=== PATIENT | female | born 1975 | race Caucasian/White ===

== ENCOUNTER 2019-01-10 06:45 | Day surgery (SDC) | payer OTHER, MEDICARE ==
[~2019-01-10] VITALS: Ht 180.3 cm; Wt 74.8 kg
[~2019-01-10 06:45] MED LIST: ADVAIR 250-501 EACH INH; ALBUTEROL2.5 MG/3 M INH; AMOXICILLIN500 M1 PO; CELEBREX200 MG PO; CEPHALEXIN500 MG PO; CYCLOBENZAPRINE5 MG PO; DICLOFENAC SODI75 MG PO; DICYCLOMINE HCL10 MG PO; DOXYCYCLINE HY100 MG PO; GABAPENTIN100 MG PO; GABAPENTIN300 MG PO; GUAIFEN-CODEINE10 ML PO; HYDROCODON-ACE1 EA11 PO; IBUPROFEN600 MG PO; IMITREX100 MG PO; IMITREX50 MG PO; IPRAT-ALBUT 0.5-3 ML INH; LEVAQUIN500 MG PO; METHYLPREDNISOLO4 M1 PO; MOTRIN IB200 MG PO; NAPROXEN500 MG PO; ONDANSETRON HCL4 MG PO; PERCOCET 5-3251 EACH PO; PERCOCET 7.5-31 EACH PO; PHENAZOPYRIDIN200 MG PO; PREDNISONE10 MG PO; PREDNISONE20 MG PO; PROMETHAZINE12.5 M1 PO; PROVENTIL HFA6.7 GM INH; PULMICORT FLE180 MCG INH; TOPAMAX100 MG PO; VENTOLIN HFA18 GM INH; ZITHROMAX250 MG PO
[2019-01-10] MEDS ORDERED: CYCLOBENZAPRINE5 MG PO (06:57)
--- NOTE | 2019-01-10 09:08 | NUR ---
01/10/19 0908 Carmen Turner 0854- PT ARRIVES TO PACU NONAROUSABLE TO NOXIOUS STIMULI. RESP EVEN AND UNLABORED. OXYGEN SAT HIGH 90'S TO 100% ON 4L VIA NC.
--- NOTE | 2019-01-12 10:32 | OR ---
[facility] [address] [place], [place] [address] Signed DATE OF OPERATION: 01/10/2019 SURGEON: Gordy Mosley MD PREOPERATIVE DIAGNOSES: 1. Weight loss. 2. Nausea, vomiting, anorexia with generalized abdominal pain. 3. Diarrhea. 4. Half brother with Crohn disease. 5. Paternal aunt with colon cancer. 6. History of remote cholecystectomy. POSTOPERATIVE DIAGNOSES: 1. Unremarkable upper endoscopy. 2. Unremarkable colonoscopy. PROCEDURES: 1. EGD with CLOtest and biopsies of the duodenum, pyloric bulb and antrum. 2. Colonoscopy with random cold biopsies. ESTIMATED BLOOD LOSS: None. INDICATIONS: Joanne is a 43-year-old female asked to see me for both upper and lower endoscopy. She has lost 83 pounds over the last year. This was all unintentional. She has had nausea, vomiting, anorexia, and rapid transit of her food. She has generalized abdominal pain. She is talking about diarrhea. Her half brother has Crohn disease. She has a daughter with irritable bowel syndrome. Stool studies were all negative. Percocet helps slow the diarrhea. However, she is a recovering drug addict and is asked not to take any narcotics whatsoever. She is having mucus in the stool and bowel movements up to six times a day. She has a paternal aunt with colon cancer. She has been off her methamphetamines now for about 3 years. In the office, I gave her a pamphlet on both upper and lower endoscopy. We reviewed the nature of the two tests along with the risks including, but not limited to gas, bloating, crampy abdominal pain, bleeding, perforation, requiring surgery, and missed diagnosis. We also discussed the need for IV conscious sedation. Because of her previous drug abuse including opiates, she wants to avoid that at all cost. Consequently, we asked an anesthesia provider to help us with increased monitoring and sedation with propofol. In fact, Joanne does use a little marijuana and it did take quite a bit of propofol to sedate her. She had expressed Electronically Signed By: GORDY MOSLEY MD 01/12/19 1032 PATIENT NAME: JOANNE REIS OPERATIVE REPORT DATE OF : 71 REPORT #: [id number] PHYSICIAN: GORDY MOSLEY MD PCP: ROXANNA WISEMAN PAC REPORT IS CONFIDENTIAL AND NOT TO BE RELEASED WITHOUT AUTHORIZATION [facility] [address] [place], [place] [address] Signed understanding and wished to proceed. PROCEDURE NOTE: Joanne was taken into our endoscopy suite and placed in a supine semi-recumbent position. The posterior oropharynx was anesthetized with lidocaine spray. A bite block was utilized for the case. She was sedated by our nurse security escort with propofol. The adult gastroscope was introduced and advanced out into the third portion of the duodenum under direct visualization of the camera without difficulty. The duodenum, pyloric channel and the entire stomach were unremarkable. We took biopsies of the duodenum, pyloric channel and antrum because of the history of diarrhea. We also took a biopsy of the antrum for CLOtest. Upon retroflexion of the scope, there was no additional pathology noted up around the GE junction. The scope was withdrawn up to the area of GE junction, which was compliant without stricture. There was no gastric or esophageal varices. No Roth's mucosa. No distal esophagitis. The middle and upper esophagus were unremarkable. After this, the gas was suctioned out and the gastroscope removed. Joanne tolerated the procedure quite well. Joanne was rotated into the left lateral decubitus position. She was maintained on IV sedation with the propofol. A digital rectal exam was unremarkable. The adult colonoscope was introduced and advanced all around into the cecum without difficulty. Her prep was quite good. We could easily see the appendiceal orifice and the ileocecal valve. Pictures were taken for photodocumentation. We could not pass the scope into the terminal ileum. We took several random biopsies throughout the colon for pathologic review due to the history of diarrhea. There were no polyps. No diverticulosis. No inflammatory changes. The rectum was unremarkable. Upon retroflexion of the scope, there was no additional pathology noted above the anal canal. After this, the gas was suctioned out and the colonoscope removed. Joanne tolerated procedure quite well. RECOMMENDATIONS: I will see Joanne back in my office in 7 to 14 days to review her results. Gordy Mosley MD ALB/MODL /[id number] Electronically Signed By: GORDY MOSLEY MD 01/12/19 1032 PATIENT NAME: JOANNE REIS OPERATIVE REPORT DATE OF : 71 REPORT #: [id number] PHYSICIAN: GORDY MOSLEY MD PCP: ROXANNA WISEMAN PAC REPORT IS CONFIDENTIAL AND NOT TO BE RELEASED WITHOUT AUTHORIZATION [facility] [address] [place], [place] [address] Signed cc: DIANA Sadler DO Andrew L Bower, MD Copies: ROXANNA WISEMAN,GORDY ALONZO MD ~ Electronically Signed By: GORDY MOSLEY MD 01/12/19 1032 PATIENT NAME: FREDDY BOWERJOANNE JESSICA OPERATIVE REPORT DATE OF : 71 REPORT #: [id number] PHYSICIAN: GORDY MOSLEY MD PCP: ROXANNA WISEMAN REPORT IS CONFIDENTIAL AND NOT TO BE RELEASED WITHOUT AUTHORIZATION
--- NOTE | 2019-01-13 13:01 | PATH ---
[facility] [address] [place], [place] [address] Signed SPECIMEN(S): A DUODENAL BIOPSY SPECIMEN(S): B DUODENAL BULB BIOPSY SPECIMEN(S): C ANTRUM/PYLORUS BIOPSY SPECIMEN(S): D RANDOM COLON BIOPSY SPECIMEN SOURCE: A. DUODENAL BIOPSY B. DUODENAL BULB BIOPSY C. ANTRUM/PYLORUS BIOPSY D. RANDOM COLON BIOPSY CLINICAL HISTORY: Diarrhea, nausea, vomiting, anorexia. MICROSCOPIC DESCRIPTION: A, B. Histologic sections of all submitted blocks are examined by light microscopy. These findings, together with the gross examination, support the pathologic diagnosis. C. Sections reveal biopsies of gastric mucosa. The epithelial surface is intact and has retained mucus secreting ability. The lamina propria is minimally expanded by a population of plasma cells, lymphocytes and infrequent eosinophils. No acute inflammatory cells, goblet cells, Paneth cells or bacteria morphologically consistent with Helicobacter are seen on HE stained sections. There is no evidence of malignancy or atypia. D. Sections reveal multiple biopsies of colonic mucosa. The epithelial surface is intact but has slightly decreased mucus secreting ability. The basement membrane is not thickened. The glands are simple and tubular and reach all of the way to the muscularis mucosae. The lamina propria is not expanded and contains small numbers of plasma cells, lymphocytes and infrequent eosinophils. No acute inflammatory cells, excess intraepithelial lymphocytes, crypt abscesses, areas of fibrosis, granulomas or pseudomembranes are seen. There is no evidence of malignancy or atypia. LJA:cml FINAL PATHOLOGIC DIAGNOSIS: A. Mucosa, duodenum, biopsy: - Duodenal mucosa with normal villous architecture, no microscopic pathologic diagnosis. B. Mucosa, duodenal bulb, biopsy: PATIENT NAME: SERGIO REIS PATHOLOGY DATE OF : 71 REPORT #: [id number] PHYSICIAN: LUIS LAIRD PCP: ROXANNA WISEMAN PAC REPORT IS CONFIDENTIAL AND NOT TO BE RELEASED WITHOUT AUTHORIZATION [facility] [address] [place], [place] [address] Signed - Duodenal mucosa with normal villiform architecture, no microscopic pathologic diagnosis. C. Mucosa, antrum, biopsy: - Minimal inactive chronic gastritis. - Negative for the presence of bacteria morphologically consistent with Helicobacter on HE stained sections (see comment). D. Mucosa, colon, random biopsies: - No microscopic pathologic diagnosis. COMMENT: C -- The patient had a BRIDGER test performed, reported as negative in the [facility] database. LJA:cml:C2NR GROSS DESCRIPTION: Four specimens are received in four containers, labeled "DC." A. The specimen, labeled "DC, duodenal biopsy," is received in formalin and consists of a single 0.3 cm tang-brown fragment. Specimen is entirely submitted in cassette (A1). B. The specimen, labeled "DC, duodenal bulb biopsy," is received in formalin and consists of a single 0.2 cm tang-brown fragment. Specimen is entirely submitted in cassette (B1). C. The specimen, labeled "DC, antrum biopsy," is received in formalin and consists of a single 0.3 cm tang fragment. Specimen is entirely submitted in cassette (C1). D. The specimen, labeled "DC, random colon biopsy," is received in formalin and consists of four, 0.2-0.3 cm tang fragments. Specimen is entirely submitted in cassette (D1). AM (under the direct supervision of a pathologist) The Gross Description was prepared using a voice recognition system. The report was reviewed for accuracy; however, sound-alike word errors, addition and/or deletions may occur. If there is any question about this report, please contact Client Services. PERFORMING LABORATORY: The technical component was performed by [facility] [address] (Life Management Teacher: Lidia Cornelius MD; CLIA# [id number]). Professional interpretation was performed by [facility], [address] [address] (Life Management Teacher: Vlad Garcia MD; CLIA# [id number]). PATIENT NAME: SERGIO REIS PATHOLOGY DATE OF : 71 REPORT #: [id number] PHYSICIAN: LUIS LAIRD PCP: ROXANNA WISEMAN PAC REPORT IS CONFIDENTIAL AND NOT TO BE RELEASED WITHOUT AUTHORIZATION [facility] [address] [place], [place] [address] Signed Diagnostician: Vlad Garcia MD Pathologist Electronically Signed 01/13/2019 Copies: ~ PATIENT NAME: SERGIO REIS PATHOLOGY DATE OF : 71 REPORT #: [id number] PHYSICIAN: LUIS PATHOLOGY PCP: ROXANNA WISEMAN PAC REPORT IS CONFIDENTIAL AND NOT TO BE RELEASED WITHOUT AUTHORIZATION
== END 2019-01-10 09:30 | disposition home or self-care (01) ==
LOC: DS 06:45
PROVIDERS: Colon & Rectal Surgery
PROC: 0DBE8ZX Excision of Large Intestine, Via Natural or Artificial Opening Endoscopic, Diagnostic (ICD-10-PCS; 2019-01-10)
PROC: 0DB98ZX Excision of Duodenum, Via Natural or Artificial Opening Endoscopic, Diagnostic (ICD-10-PCS; principal; 2019-01-10 07:45)
PROC: 0DB78ZX Excision of Stomach, Pylorus, Via Natural or Artificial Opening Endoscopic, Diagnostic (ICD-10-PCS; 2019-01-10 07:45)
DX: R19.7 Diarrhea, unspecified (principal); K29.50 Unspecified chronic gastritis without bleeding; R63.0 Anorexia; M19.90 Unspecified osteoarthritis, unspecified site; F41.0 Panic disorder [episodic paroxysmal anxiety]; F32.9 Major depressive disorder, single episode, unspecified; F12.90 Cannabis use, unspecified, uncomplicated; J18.9 Pneumonia, unspecified organism; G43.909 Migraine, unspecified, not intractable, without status migrainosus; J44.9 Chronic obstructive pulmonary disease, unspecified; F41.9 Anxiety disorder, unspecified; R63.4 Abnormal weight loss; F17.210 Nicotine dependence, cigarettes, uncomplicated; Z80.0 Family history of malignant neoplasm of digestive organs; Z90.49 Acquired absence of other specified parts of digestive tract; Z83.79 Family history of other diseases of the digestive system; Z88.6 Allergy status to analgesic agent; Z88.5 Allergy status to narcotic agent; Z88.8 Allergy status to other drugs, medicaments and biological substances; Z79.51 Long term (current) use of inhaled steroids; Z79.899 Other long term (current) drug therapy
CPT/HCPCS: 86677; J2250; J2704; J3010; J7120

== ENCOUNTER 2019-01-10 15:35 | Emergency (ER) | payer OTHER, MEDICARE ==
[~2019-01-10] VITALS: Ht 180.3 cm; Wt 74.8 kg
--- OUTSIDE RECORDS SUMMARY | 2019-01-10 15:38 | XMS ---
PreManage Notification: SERGIO REIS Security Advanced Practice Provider Events No recent Security Events currently on file CRITERIA MET - [facility] - Has Care Guidelines - PDMP CARE PROVIDERS ROXANNA WISEMAN Physician Composition Professor 03/27/2018-Current PHONE: Unknown eLisa has no Care Guidelines for this patient. Care History Medical/Surgical 12/02/2018 [facility] - PATIENT HAS AN APT WITH DR MILTON- UROLOGIST- MOVED FROM 12/12/18 TO AT 9:00AM. 04/10/2018 [facility] - PATIENT PCP HAS DISCUSSED WITH PATIENT ABOUT A REFERRAL TO PULMONARY REHAB THE WEEK OF 04/08/18 - PATIENT AND PCP AGREED TO PULMONARY REHAB. PATIENT FOLLOWED UP WITH PCP ON 04/09/18 DUE TO RECENT ED VISITS. E.D. VISIT COUNT (12 MO.) 1 [facility]. 7 [facility]. TOTAL 8 NOTE: Visits indicate total known visits. ED/UCC VISIT TRACKING (12 MO.) 01/10/2019 15:35 [facility] [place] TYPE: Emergency COMPLAINT: - POST OP SURGERY ISSUES 11/29/2018 16:21 [facility] [place] TYPE: Emergency COMPLAINT: - KIDNEY PAIN DIAGNOSES: - Nicotine dependence, unspecified, uncomplicated - Dorsalgia, unspecified - Allergy status to other anti-infective agents status - Allergy status to analgesic agent status - Allergy status to other antibiotic agents status - Allergy status to other drugs, medicaments and biological substances status 11/27/2018 06:54 TRAY Ramírez TYPE: Emergency COMPLAINT: - DIZZY DIAGNOSES: - Nausea with vomiting, unspecified - Chronic obstructive pulmonary disease, unspecified - Allergy status to narcotic agent status - Nicotine dependence, unspecified, uncomplicated - Allergy status to other drugs, medicaments and biological substances status - Migraine, unspecified, not intractable, without status migrainosus - Dizziness and giddiness - Other intermediate (current) drug therapy - Epilepsy, unspecified, not intractable, without status epilepticus - Abnormal weight loss - Vomiting, unspecified - Diarrhea, unspecified 11/07/2018 05:[address] [facility] TYPE: Emergency COMPLAINT: - WRIST PAIN DIAGNOSES: - Allergy status to analgesic agent status - Unspecified asthma, uncomplicated - Acquired absence of both cervix and uterus - Other acute postprocedural pain - Acquired absence of other specified parts of digestive tract - Pain in left finger(s) - Allergy status to other drugs, medicaments and biological substances status - Allergy status to other antibiotic agents status - Nicotine dependence, unspecified, uncomplicated 09/28/2018 09:06 [facility] TYPE: Emergency DIAGNOSES: - Left Thumb Numbness - Contusion of left thumb without damage to nail, initial encounter - Joint Swelling - Other acute postprocedural pain 04/08/2018 01:[address] [facility] TYPE: Emergency COMPLAINT: - FLU SYMPTOMS DIAGNOSES: - Chronic obstructive pulmonary disease with (acute) exacerbation - Epilepsy, unspecified, not intractable, without status epilepticus - Allergy status to other drugs, medicaments and biological substances status - Migraine, unspecified, not intractable, without status migrainosus - Nicotine dependence, unspecified, uncomplicated - snf (current) use of systemic steroids - Acute upper respiratory infection, unspecified - Other vermin exterminator (current) drug therapy - Shortness of breath 03/26/2018 10:34 [facility] [place] [place] TYPE: Emergency COMPLAINT: - DIFFICULTY BREATHING DIAGNOSES: - Nicotine dependence, unspecified, uncomplicated - Shortness of breath - Acute bronchitis, unspecified - Other vermin exterminator (current) drug therapy - Allergy status to other drugs, medicaments and biological substances status 03/24/2018 06:51 [facility] [place] TYPE: Emergency COMPLAINT: - DIFFICULTY BREATHING DIAGNOSES: - Shortness of breath - Other vermin exterminator (current) drug therapy - Unspecified asthma with (acute) exacerbation - Epilepsy, unspecified, not intractable, without status epilepticus - Pneumonia, unspecified organism - Nicotine dependence, unspecified, uncomplicated - Allergy status to other drugs, medicaments and biological substances status - Migraine, unspecified, not intractable, without status migrainosus INPATIENT VISIT TRACKING (12 MO.) No inpatient visits to display in this time frame [email or web address]
== END 2019-01-10 17:49 | disposition home or self-care (01) ==
LOC: ED 15:35
DX: L98.9 Disorder of the skin and subcutaneous tissue, unspecified (principal); Z53.21 Procedure and treatment not carried out due to patient leaving prior to being seen by health care provider

== ENCOUNTER 2019-01-25 16:06 | Emergency (ER) | payer MEDICARE ==
[~2019-01-25] VITALS: Ht 180.3 cm; Wt 74.8 kg
--- OUTSIDE RECORDS SUMMARY | 2019-01-25 16:08 | XMS ---
PreManage Notification: SERGIO REIS Security Supervisor Cold Rolling Events 1 event(s) in the past 18 months Most recent security events: Elopement at [facility] 01/10/2019 15:35 - Other Details: PATIENT LWBS. IRIS CREATED. CRITERIA MET - 6 ED Visits in 6 Months - [facility] - Has Care Guidelines - PDMP - [facility] - 2 Visits in 30 Days CARE PROVIDERS ROXANNA WISEMAN Physician Electro Mechanic 03/27/2018-Current PHONE: Unknown Leisa has no Care Guidelines for this patient. Care History Medical/Surgical 12/02/2018 [facility] - PATIENT HAS AN APT WITH DR MILTON- UROLOGIST- MOVED FROM 12/12/18 TO AT 9:00AM. 04/10/2018 [facility] - PATIENT PCP HAS DISCUSSED WITH PATIENT ABOUT A REFERRAL TO PULMONARY REHAB THE WEEK OF 04/08/18 - PATIENT AND PCP AGREED TO PULMONARY REHAB. PATIENT FOLLOWED UP WITH PCP ON 04/09/18 DUE TO RECENT ED VISITS. E.D. VISIT COUNT (12 MO.) 1 [facility] 1 PUNEET Abrams 8 TRAY Rocha TOTAL 10 NOTE: Visits indicate total known visits. ED/UCC VISIT TRACKING (12 MO.) 01/25/2019 16:07 TRAY Ramírez TYPE: Emergency COMPLAINT: - FLANK PAIN 01/15/2019 10:21 [facility] [place] TYPE: Emergency COMPLAINT: - Hand Pain 01/10/2019 15:35 [facility] [place] TYPE: Emergency COMPLAINT: - POST OP SURGERY ISSUES/LEFT W/O BEING SEEN DIAGNOSES: - Procedure and treatment not carried out due to patient leaving prior to being seen by health care provider - Disorder of the skin and subcutaneous tissue, unspecified 11/29/2018 16:21 [facility] [place] TYPE: Emergency COMPLAINT: - KIDNEY PAIN DIAGNOSES: - Nicotine dependence, unspecified, uncomplicated - Dorsalgia, unspecified - Allergy status to other anti-infective agents status - Allergy status to analgesic agent status - Allergy status to other antibiotic agents status - Allergy status to other drugs, medicaments and biological substances status 11/27/2018 06:54 [facility] [place] TYPE: Emergency COMPLAINT: - DIZZY DIAGNOSES: - Nausea with vomiting, unspecified - Chronic obstructive pulmonary disease, unspecified - Allergy status to narcotic agent status - Nicotine dependence, unspecified, uncomplicated - Allergy status to other drugs, medicaments and biological substances status - Migraine, unspecified, not intractable, without status migrainosus - Dizziness and giddiness - Other terminal gauger supervisor (current) drug therapy - Epilepsy, unspecified, not intractable, without status epilepticus - Abnormal weight loss - Vomiting, unspecified - Diarrhea, unspecified 11/07/2018 05:24 [facility] [place] TYPE: Emergency COMPLAINT: - WRIST PAIN DIAGNOSES: [...] - Nicotine dependence, unspecified, uncomplicated 09/28/2018 09:06 [facility] TYPE: Emergency DIAGNOSES: - Left Thumb Numbness - Contusion of left thumb without damage to nail, initial encounter - Joint Swelling - Other acute postprocedural pain 04/08/2018 01:05 TRAY Ramírez TYPE: Emergency COMPLAINT: - FLU SYMPTOMS DIAGNOSES: - Chronic obstructive pulmonary disease with (acute) exacerbation - Epilepsy, unspecified, not intractable, without status epilepticus - Allergy status to other drugs, medicaments and biological substances status - Migraine, unspecified, not intractable, without status migrainosus - Nicotine dependence, unspecified, uncomplicated - meterman (current) use of systemic steroids - Acute upper respiratory infection, unspecified - Other terminal gauger supervisor (current) drug therapy - Shortness of breath 03/26/2018 10:34 [facility] [place] TYPE: Emergency COMPLAINT: - DIFFICULTY BREATHING DIAGNOSES: - Nicotine dependence, unspecified, uncomplicated - Shortness of breath - Acute bronchitis, unspecified - Other terminal gauger supervisor (current) drug therapy - Allergy status to other drugs, medicaments and biological substances status 03/24/2018 06:51 [facility] [place] TYPE: Emergency COMPLAINT: - DIFFICULTY BREATHING DIAGNOSES: - Shortness of breath - Other terminal gauger supervisor (current) drug therapy - Unspecified asthma with (acute) exacerbation - Epilepsy, unspecified, not intractable, without status epilepticus - Pneumonia, unspecified organism - Nicotine dependence, unspecified, uncomplicated - Allergy status to other drugs, medicaments and biological substances status - Migraine, unspecified, not intractable, without status migrainosus INPATIENT VISIT TRACKING (12 MO.) No inpatient visits to display in this time frame [email or web address]
== END 2019-01-25 18:43 | disposition home or self-care (01) ==
LOC: ED 16:06
DX: R10.9 Unspecified abdominal pain (principal); F17.200 Nicotine dependence, unspecified, uncomplicated; Z88.0 Allergy status to penicillin; Z88.1 Allergy status to other antibiotic agents; Z88.6 Allergy status to analgesic agent; Z88.3 Allergy status to other anti-infective agents; Z88.8 Allergy status to other drugs, medicaments and biological substances
CPT/HCPCS: 74176; 80053; 81001; 84703; 85025; 96374; 96375; 99284-25; 99406; J1885; J2405

== ENCOUNTER 2019-06-01 07:57 | Emergency (ER) | payer MEDICARE ==
[~2019-06-01] VITALS: Ht 180.3 cm; Wt 74.8 kg
--- OUTSIDE RECORDS SUMMARY | 2019-06-01 08:00 | XMS ---
PreManage Notification: SERGIO REIS Security Anthropology Lecturer Events 1 event(s) in the past 18 months Most recent security events: Elopement at [facility] [place] [facility] 01/10/2019 15:35 - Other Details: PATIENT LWBS. IRIS CREATED. CRITERIA MET - [facility] - Has Care Guidelines - PDMP CARE PROVIDERS ROXANNA WISEMAN Physician Fixed Capital Clerk 03/27/2018-Current PHONE: Unknown Leisa has no Care Guidelines for this patient. Care History Medical/Surgical 12/02/2018 [facility] [place] [facility] - PATIENT HAS AN APT WITH DR MILTON- UROLOGIST- MOVED FROM 12/12/18 TO AT 9:00AM. 04/10/2018 [facility] [place] [facility] - PATIENT PCP HAS DISCUSSED WITH PATIENT ABOUT A REFERRAL TO PULMONARY REHAB THE WEEK OF 04/08/18 - PATIENT AND PCP AGREED TO PULMONARY REHAB. PATIENT FOLLOWED UP WITH PCP ON 04/09/18 DUE TO RECENT ED VISITS. E.D. VISIT COUNT (12 MO.) [address] [place] [address] [facility] T[facility] 8 NOTE: Visits indicate total known visits. ED/UCC VISIT TRACKING (12 MO.) 06/01/2019 07:58 [facility] [place] TYPE: Emergency COMPLAINT: - POST OP PROBLEM 01/25/2019 16:07 [facility] [place] TYPE: Emergency COMPLAINT: - FLANK PAIN DIAGNOSES: - Allergy status to other antibiotic agents status - Allergy status to penicillin - Nicotine dependence, unspecified, uncomplicated - Unspecified abdominal pain - Allergy status to analgesic agent status - Allergy status to oth drug/meds/biol subst status - Allergy status to other anti-infective agents status 01/15/2019 10:21 PUNE[facility] [place] TYPE: Emergency COMPLAINT: - Hand Pain 01/10/2019 15:35 TRAY Ramírez TYPE: Emergency COMPLAINT: - POST OP SURGERY ISSUES/LEFT W/O BEING SEEN DIAGNOSES: - Proc/trtmt not crd out d/t pt lv bef seen by [facility] care prov - Disorder of the skin and subcutaneous tissue, unspecified 11/29/2018 16:21 TRAY Ramírez TYPE: Emergency COMPLAINT: - KIDNEY PAIN DIAGNOSES: - Nicotine dependence, unspecified, uncomplicated - Dorsalgia, unspecified - Allergy status to other anti-infective agents status - Allergy status to analgesic agent status - Allergy status to other antibiotic agents status - Allergy status to oth drug/meds/biol subst status 11/27/2018 06:54 TRAY Ram[facility]rez TYPE: Emergency COMPLAINT: - DIZZY DIAGNOSES: - Nausea with vomiting, unspecified - Chronic obstructive pulmonary disease, unspecified - Allergy status to narcotic agent status - Nicotine dependence, unspecified, uncomplicated - Allergy status to oth drug/meds/biol subst status - Migraine, unsp, not intractable, without status migrainosus - Dizziness and giddiness - Other long term care phlebotomist (current) drug therapy - Epilepsy, unsp, not intractable, without status epilepticus - Abnormal weight loss - Vomiting, unspecified - Diarrhea, unspecified 11/07/2018 05:24 TRAY Ramírez TYPE: Emergency COMPLAINT: - WRIST PAIN DIAGNOSES: - Allergy status to analgesic agent status - Unspecified asthma, uncomplicated - Acquired absence of both cervix and uterus - Other acute postprocedural pain - Acquired absence of other specified parts of digestive tract - Pain in left finger(s) - Allergy status to oth drug/meds/biol subst status - Allergy status to other antibiotic agents status - Nicotine dependence, unspecified, uncomplicated 09/28/2018 09:06 [facility] TYPE: Emergency DIAGNOSES: - Left Thumb Numbness - Contusion of left thumb without damage to nail, init encntr - Joint Swelling - Other acute postprocedural pain INPATIENT VISIT TRACKING (12 MO.) No inpatient visits to display in this time frame [email or web address]
[2019-06-01] MEDS ORDERED: SUDOGEST60 MG PO (08:18)
== END 2019-06-01 10:33 | disposition home or self-care (01) ==
LOC: ED 07:57
DX: H66.92 Otitis media, unspecified, left ear (principal); H60.92 Unspecified otitis externa, left ear; G43.909 Migraine, unspecified, not intractable, without status migrainosus; J44.9 Chronic obstructive pulmonary disease, unspecified; F17.200 Nicotine dependence, unspecified, uncomplicated; Z88.8 Allergy status to other drugs, medicaments and biological substances; Z88.0 Allergy status to penicillin; Z79.899 Other long term (current) drug therapy
CPT/HCPCS: 80053; 81001; 85025; 96361; 96374; 99283-25; J1885; J7030

== ENCOUNTER 2019-06-24 16:47 | Emergency (ER) | payer MEDICARE ==
[~2019-06-24] VITALS: Ht 180.3 cm; Wt 78.0 kg
[~2019-06-24 16:47] MED LIST changes: +KEFLEX500 MG PO; +NORCO 5-325 TA1 EACH PO; +SUDOGEST60 MG PO; +ZENPEP DR 25,01 EAC1 PO
--- OUTSIDE RECORDS SUMMARY | 2019-06-24 16:50 | XMS ---
PreManage Notification: SERGIO REIS Security Six Pack Packer Events 1 event(s) in the past 18 months Most recent security events: Elopement at [facility] 01/10/2019 15:35 - Other Details: PATIENT LWBS. CRITERIA MET - [facility] - Has Care Guidelines - PDMP - [facility] - 2 Visits in 30 Days CARE PROVIDERS ROXANNA WISEMAN Physician Weatherization Coordinator 03/27/2018-Current PHONE: Unknown Leisa has no Care Guidelines for this patient. Care History Medical/Surgical 12/02/2018 [facility] - PATIENT HAS AN APT WITH DR MILTON- UROLOGIST- MOVED FROM 12/12/18 TO AT 9:00AM. 04/10/2018 [facility] - PATIENT PCP HAS DISCUSSED WITH PATIENT ABOUT A REFERRAL TO PULMONARY REHAB THE WEEK OF 04/08/18 - PATIENT AND PCP AGREED TO PULMONARY REHAB. PATIENT FOLLOWED UP WITH PCP ON 04/09/18 DUE TO RECENT ED VISITS. E.D. VISIT COUNT (12 MO.) 1 [facility]. TOTAL 9 NOTE: Visits indicate total known visits. ED/UCC VISIT TRACKING (12 MO.) 06/24/2019 16:48 [facility] [place] TYPE: Emergency COMPLAINT: - BLOODY NOSE/ POST OP 06/01/2019 07:58 [facility] [place] TYPE: Emergency COMPLAINT: - POST OP PROBLEM DIAGNOSES: - Migraine, unsp, not intractable, without status migrainosus - Chronic obstructive pulmonary disease, unspecified - Other intermission coordinator (current) drug therapy - Unspecified otitis externa, left ear - Nicotine dependence, unspecified, uncomplicated - Allergy status to penicillin - Allergy status to oth drug/meds/biol subst status - Otitis media, unspecified, left ear 01/25/2019 16:07 [facility] [place] TYPE: Emergency COMPLAINT: - FLANK PAIN DIAGNOSES: - Allergy status to other antibiotic agents status - Allergy status to penicillin - Nicotine dependence, unspecified, uncomplicated - Unspecified abdominal pain - Allergy status to analgesic agent status - Allergy status to oth drug/meds/biol subst status - Allergy status to other anti-infective agents status 01/15/2019 10:21 [facility] TYPE: Emergency COMPLAINT: - Hand Pain 01/10/2019 15:35 [facility] [place] TYPE: Emergency COMPLAINT: - POST OP SURGERY ISSUES/LEFT W/O BEING SEEN DIAGNOSES: - Proc/trtmt not crd out d/t pt lv bef seen by [facility] care prov - Disorder of the skin [...] oth drug/meds/biol subst status 11/27/2018 06:54 [facility] [place] TYPE: Emergency COMPLAINT: - DIZZY DIAGNOSES: - Nausea with vomiting, unspecified - Chronic obstructive pulmonary disease, unspecified - Allergy status to narcotic agent status - Nicotine dependence, unspecified, uncomplicated - Allergy status to oth drug/meds/biol subst status - Migraine, unsp, not intractable, without status migrainosus - Dizziness and giddiness - Other detention (current) drug therapy - Epilepsy, unsp, not [...] Nicotine dependence, unspecified, uncomplicated 09/28/2018 09:06 [facility] TYPE: Emergency DIAGNOSES: - Left Thumb Numbness - Contusion of left thumb without damage to nail, init encntr - Joint Swelling - Other acute postprocedural pain INPATIENT VISIT TRACKING (12 MO.) No inpatient visits to display in this time frame [email or web address]
== END 2019-06-24 18:00 | disposition home or self-care (01) ==
LOC: ED 16:47
DX: R04.0 Epistaxis (principal); G43.909 Migraine, unspecified, not intractable, without status migrainosus; G40.909 Epilepsy, unspecified, not intractable, without status epilepticus; J44.9 Chronic obstructive pulmonary disease, unspecified; F17.200 Nicotine dependence, unspecified, uncomplicated; Z88.0 Allergy status to penicillin; Z88.5 Allergy status to narcotic agent; Z88.8 Allergy status to other drugs, medicaments and biological substances; Z88.1 Allergy status to other antibiotic agents; Z79.899 Other long term (current) drug therapy
CPT/HCPCS: 99283

== ENCOUNTER 2020-05-28 10:53 | Emergency (ER) | payer OTHER ==
[~2020-05-28] VITALS: Ht 180.3 cm; Wt 73.0 kg
[~2020-05-28 10:53] MED LIST changes: +QUESTRAN PACKET4 GM PO
--- OUTSIDE RECORDS SUMMARY | 2020-05-28 10:56 | XMS ---
PreManage Notification: SERGIO REIS Security Coagulator Events 1 event(s) in the past 18 months Most recent security events: Elopement at [facility] 01/10/2019 15:35 - Other Details: PATIENT LWBS. CRITERIA MET - [facility] - Has Care Guidelines - ED - Positive COVID-19 Lab Result - [facility] CARE PROVIDERS ROXANNA WISEMAN Physician Retort Cooler 03/27/2018-Current PHONE: Unknown Leisa has no Care Guidelines for this patient. Care History Medical/Surgical 12/02/2018 [facility] - PATIENT HAS AN APT WITH DR MILTON- UROLOGIST- MOVED FROM 12/12/18 TO AT 9:00AM. 04/10/2018 [facility] - PATIENT PCP HAS DISCUSSED WITH PATIENT ABOUT A REFERRAL TO PULMONARY REHAB THE WEEK OF 04/08/18 - PATIENT AND PCP AGREED TO PULMONARY REHAB. PATIENT FOLLOWED UP WITH PCP ON 04/09/18 DUE TO RECENT ED VISITS. E.D. VISIT COUNT (12 MO.) 3 [facility] TOTAL 3 NOTE: Visits indicate total known visits. ED/UCC VISIT TRACKING (12 MO.) 05/28/2020 10:53 [facility] [place] TYPE: Emergency COMPLAINT: - RECTAL BLEEDING 06/24/2019 16:48 [facility] TYPE: Emergency COMPLAINT: - BLOODY NOSE/ POST OP DIAGNOSES: - Allergy status to other drugs, medicaments and biological substances - Migraine, unspecified, not intractable, without status migrainosus - Allergy status to penicillin - Nicotine dependence, unspecified, uncomplicated - Allergy status to other antibiotic agents - Epilepsy, unspecified, not intractable, without status epilepticus - Chronic obstructive pulmonary disease, unspecified - Allergy status to narcotic agent - Epistaxis - Other alf (current) drug therapy 06/01/2019 07:58 [facility] [place] TYPE: Emergency COMPLAINT: - POST OP PROBLEM DIAGNOSES: - Migraine, unspecified, not intractable, without status migrainosus - Chronic obstructive pulmonary disease, unspecified - Other truck terminal manager (current) drug therapy - Unspecified otitis externa, left ear - Nicotine dependence, unspecified, uncomplicated - Allergy status to penicillin - Allergy status to other drugs, medicaments and biological substances - Otitis media, unspecified, left ear INPATIENT VISIT TRACKING (12 MO.) No inpatient visits to display in this time frame [id number]
[2020-05-28] MEDS ORDERED: METHYLPREDNISOLO4 M1 PO (11:38)
[2020-05-28] MEDS ORDERED: NASAL DECONGES120 MG PO (11:38)
== END 2020-05-28 14:30 | disposition home or self-care (01) ==
LOC: ED 10:53
DX: K52.9 Noninfective gastroenteritis and colitis, unspecified (principal); G43.909 Migraine, unspecified, not intractable, without status migrainosus; G40.909 Epilepsy, unspecified, not intractable, without status epilepticus; J44.9 Chronic obstructive pulmonary disease, unspecified; F17.200 Nicotine dependence, unspecified, uncomplicated; Z88.8 Allergy status to other drugs, medicaments and biological substances; Z88.0 Allergy status to penicillin; Z88.5 Allergy status to narcotic agent; Z88.1 Allergy status to other antibiotic agents; Z79.899 Other long term (current) drug therapy
CPT/HCPCS: 80053; 85025; 96374; 99283-25; J2405; J7030

== ENCOUNTER 2021-02-03 11:54 | Emergency (ER) | payer OTHER ==
[~2021-02-03] VITALS: Ht 180.3 cm; Wt 76.2 kg
[~2021-02-03 11:54] MED LIST changes: +NASAL DECONGES120 MG PO
[2021-02-03] MEDS ORDERED: METHYLPREDNISOLO4 M1 PO (13:20)
[2021-02-03] MEDS ORDERED: BUTALB-ACETAMI1 EACH PO (13:20)
[2021-02-03] MEDS ORDERED: CYCLOBENZAPRINE5 MG PO (13:20)
[2021-02-03] MEDS ORDERED: SUMATRIPTAN SUC50 MG PO (13:21)
== END 2021-02-03 14:34 | disposition home or self-care (01) ==
LOC: ED 11:54
DX: M54.42 Lumbago with sciatica, left side (principal); G43.909 Migraine, unspecified, not intractable, without status migrainosus; J45.909 Unspecified asthma, uncomplicated; J44.9 Chronic obstructive pulmonary disease, unspecified; F17.200 Nicotine dependence, unspecified, uncomplicated; Z88.0 Allergy status to penicillin; Z88.8 Allergy status to other drugs, medicaments and biological substances; Z88.6 Allergy status to analgesic agent; Z88.5 Allergy status to narcotic agent; Z79.899 Other long term (current) drug therapy
CPT/HCPCS: 72100; 99283-25

== ENCOUNTER 2021-11-08 09:33 | Emergency (ER) | payer MEDICARE, OTHER ==
[~2021-11-08] VITALS: Ht 180.3 cm; Wt 81.7 kg
[~2021-11-08 09:33] MED LIST changes: +BUTALB-ACETAMI1 EACH PO; +SUMATRIPTAN SUC50 MG PO
--- OUTSIDE RECORDS SUMMARY | 2021-11-08 09:36 | XMS ---
PreManage Notification: SERGIO REIS Security Fan Mail Editor Events No recent Security Events currently on file CRITERIA MET - PDMP CARE PROVIDERS ROXANNA WISEMAN Physician Relationship Counselor 05/31/2020-Current PHONE: Unknown Leisa has no Care Guidelines for this patient. Care History Medical/Surgical 12/02/2018 [facility] - PATIENT HAS AN APT WITH DR MILTON- UROLOGIST- MOVED FROM 12/12/18 TO AT 9:00AM. 04/10/2018 [facility] - PATIENT PCP HAS DISCUSSED WITH PATIENT ABOUT A REFERRAL TO PULMONARY REHAB THE WEEK OF 04/08/18 - PATIENT AND PCP AGREED TO PULMONARY REHAB. PATIENT FOLLOWED UP WITH PCP ON 04/09/18 DUE TO RECENT ED VISITS. E.D. VISIT COUNT (12 MO.) [address] TOTAL 3 NOTE: Visits indicate total known visits. ED/UCC VISIT TRACKING (12 MO.) 11/08/2021 09:34 [facility] TYPE: Emergency COMPLAINT: - LOWER BACK PAIN, BLOATING 04/10/2021 12:41 [facility] TYPE: Emergency DIAGNOSES: - Diarrhea (Adult) - Diarrhea, unspecified - Vomiting, unspecified - Back Pain - Weight Loss - Nausea - Generalized abdominal pain - Unspecified abdominal pain 02/03/2021 11:[address] [facility] [place] TYPE: Emergency COMPLAINT: - LOWER BACK PAIN DIAGNOSES: - Migraine, unspecified, not intractable, without status migrainosus - Allergy status to narcotic agent - Nicotine dependence, unspecified, uncomplicated - Other long term acute care registered nurse (current) drug therapy - Allergy status to penicillin - Allergy status to other drugs, medicaments and biological substances - Chronic obstructive pulmonary disease, unspecified - Low back pain - Allergy status to analgesic agent - Unspecified asthma, uncomplicated - Lumbago with sciatica, left side INPATIENT VISIT TRACKING (12 MO.) No inpatient visits to display in this time frame [email or web address]
[2021-11-08] MEDS ORDERED: PROMETHAZINE HC25 M1 PO (10:00)
[2021-11-08] MEDS ORDERED: ZENPEP DR 20,01 EACH PO (10:00)
[2021-11-08] MEDS ORDERED: BENZONATATE200 MG PO (10:01)
[2021-11-08] MEDS ORDERED: LOMOTIL TABLET1 EACH PO (12:21)
[2021-11-08] MEDS ORDERED: CYCLOBENZAPRINE10 MG PO (12:21)
== END 2021-11-08 13:00 | disposition home or self-care (01) ==
LOC: ED 09:33
DX: R10.9 Unspecified abdominal pain (principal); K52.9 Noninfective gastroenteritis and colitis, unspecified; J44.9 Chronic obstructive pulmonary disease, unspecified; F17.200 Nicotine dependence, unspecified, uncomplicated; Z88.0 Allergy status to penicillin; Z88.6 Allergy status to analgesic agent; Z88.8 Allergy status to other drugs, medicaments and biological substances
CPT/HCPCS: 36415; 80053; 81001; 83690; 85025; J2060; J2550; J7030

== ENCOUNTER 2023-01-24 06:08 | Emergency (ER) | payer MEDICARE, OTHER ==
[~2023-01-24] VITALS: Ht 180.3 cm; Wt 100.7 kg
--- OUTSIDE RECORDS SUMMARY | ~2023-01-24 | XMS | Continuity of Care Document ---
Demographics + + + | Address | [address] | | | [place] [address] | + + + | Preferred Language | Unknown | + + + | Marital Status | | + + + | Islam Affiliation | Unknown | + + + | Race | White | + + + | Ethnic Group | Not or | + + + Author + + + | Author | [facility] | + + + | Organization | [facility] | + + + | Address | [address] | | | [place] [address] | + + + | Phone | | + + + Care Team Providers + + + + | Care Drive Man Name | Role | Phone | + + + + Unavailable | Unavailable | + + + + Unavailable | Unavailable | + + + + Unavailable | Unavailable | + + + + Unavailable | Unavailable | + + + + Allergies and Intolerances + + + + + + | date | description | facility | reaction | severity | + + + + + + | (no date) | Tramadol | [facility] | (no reaction) | (no severity) | [facility] | | + + + + + + | (no date) | tramadol | [facility] | (no reaction) | (no severity) | [facility] | | | + + + + + + | (no date) | Tramadol | [facility] | (no reaction) | (no severity) | [facility] | | | + + + + + + | (no date) | Celecoxib | [facility] | (no reaction) | (no severity) | [facility] | | | + + + + + + | (no date) | Celecoxib | [facility] | (no reaction) | (no severity) | [facility] | | | + + + + + + | (no date) | celecoxib | [facility] | (no reaction) | (no severity) | [facility] | | + + + + + + | (no date) | Diclofenac | [facility] | (no reaction) | (no severity) | [facility] | | | + + + + + + | (no date) | Heartburn | [facility] | (no reaction) | (no severity) | | [facility] | | | + + + + + + | (no date) | Mild | [facility] | (no reaction) | (no severity) | [facility] | | + + + + + + | (no date) | Omeprazole | [facility] | (no reaction) | (no severity) | [facility] | | + + + + + + | (no date) | Amoxicillin | [facility] | (no reaction) | (no severity) | [facility] | | + + + + + + | (no date) | Diclofenac | [facility] | (no reaction) | (no severity) | [facility] | | + + + + + + | (no date) | diclofenac | [facility] | (no reaction) | (no severity) | | [facility] | | + + + + + + | (no date) | Diclofenac | [facility] | (no reaction) | (no severity) | | [facility] | | + + + + + + | (no date) | Atomoxetine | [facility] | (no reaction) | (no severity) | [facility] | | + + + + + + | (no date) | atomoxetine | [facility] | (no reaction) | (no severity) | | [facility] | | + + + + + + | (no date) | Tramadol | [facility] | (no reaction) | (no severity) | [facility] | | + + + + + + | (no date) | Atomoxetine | [facility] | (no reaction) | (no severity) | | [facility] | | + + + + + + | (no date) | Vomiting | [facility] | (no reaction) | (no severity) | | [facility] | | | + + + + + + | (no date) | Penicillin | [facility] | (no reaction) | (no severity) | | [facility] | | + + + + + + | (no date) | Amoxicillin | [facility] | (no reaction) | (no severity) | | [facility] | | | + + + + + + | (no date) | amoxicillin | [facility] | (no reaction) | (no severity) | | [facility] | | | + + + + + + | (no date) | Penicillin | [facility] | (no reaction) | (no severity) | | [facility] | | | + + + + + + | (no date) | Omeprazole | [facility] | (no reaction) | (no severity) | | [facility] | | | + + + + + + | (no date) | omeprazole | [facility] | (no reaction) | (no severity) | | [facility] | | | + + + + + + | (no date) | Amoxicillin | [facility] | (no reaction) | (no severity) | | [facility] | | | + + + + + + | (no date) | Atomoxetine | [facility] | (no reaction) | (no severity) | | [facility] | | | + + + + + + | (no date) | Penicillins | [facility] | (no reaction) | (no severity) | + + + + + + | (no date) | omeprazole | [facility] | (no reaction) | (no severity) | + + + + + + | (no date) | amoxicillin | [facility] | (no reaction) | (no severity) | + + + + + + | (no date) | tramadol | [facility] | (no reaction) | (no severity) | + + + + + + | (no date) | diclofenac | [facility] | (no reaction) | (no severity) | + + + + + + | (no date) | celecoxib | [facility] | (no reaction) | (no severity) | + + + + + + | (no date) | atomoxetine | [facility] | (no reaction) | (no severity) | + + + + + + | (no date) | Celecoxib | [facility] | (no reaction) | (no severity) | | [facility] | | | + + + + + + | (no date) | Omeprazole | [facility] | (no reaction) | (no severity) | | [facility] | | | + + + + + + | (no date) | Penicillin | [facility] | (no reaction) | (no severity) | | [facility] | | | + + + + + + | (no date) | Penicillin | [facility] | (no reaction) | (no severity) | | [facility] | | | + + + + + + Encounters No information. Functional Status No information. Immunizations No information. Medications + + + + | date | description | facility | + + + + | 2022-10-25 00:00 | FAMOTIDINE | [facility] | + + + + | 2022-10-25 00:00 | ONDANSETRON | [facility] | + + + + | 2021-11-15 00:00 | PSEUDOEPHEDRINE HCL | [facility] | + + + + | 2021-11-17 00:00 | PSEUDOEPHEDRINE HCL | [facility] | + + + + | 2022-10-25 00:00 | PSEUDOEPHEDRINE HCL | [facility] | + + + + | 2021-11-15 00:00 | PSEUDOEPHEDRINE HCL | [facility] | + + + + | 2021-11-17 00:00 | PSEUDOEPHEDRINE HCL | [facility] | + + + + | 2022-10-25 00:00 | PSEUDOEPHEDRINE HCL | [facility] | + + + + | 2021-11-15 00:00 | OXYCODONE | [facility] | | | HCL/ACETAMINOPHEN | | + + + + | 2021-11-17 00:00 | OXYCODONE | [facility] | | | HCL/ACETAMINOPHEN | | + + + + | 2022-10-25 00:00 | OXYCODONE | [facility] | | | HCL/ACETAMINOPHEN | | + + + + | 2017-03-29 00:00 | PHENAZOPYRIDINE HCL | [facility] | + + + + | 2017-03-29 00:00 | PHENAZOPYRIDINE HCL | [facility] | + + + + | 2017-03-29 00:00 | PHENAZOPYRIDINE HCL | [facility] | + + + + | 2021-11-08 00:00 | DIPHENOXYLATE HCL/ATROPINE | [facility] | | | | | + + + + | 2021-11-08 00:00 | DIPHENOXYLATE HCL/ATROPINE | [facility] | | | | | + + + + | 2021-11-08 00:00 | DIPHENOXYLATE HCL/ATROPINE | [facility] | | | | | + + + + | 2018-03-26 00:00 | IPRATROPIUM/ALBUTEROL | [facility] | | | SULFATE | | + + + + | 2018-03-26 00:00 | IPRATROPIUM/ALBUTEROL | [facility] | | | SULFATE | | + + + + | 2018-03-26 00:00 | IPRATROPIUM/ALBUTEROL | [facility] | | | SULFATE | | + + + + | 2021-11-15 00:00 | Lipase/Protease/Amylase | [facility] | + + + + | 2021-11-17 00:00 | Lipase/Protease/Amylase | [facility] | + + + + | 2022-10-25 00:00 | Lipase/Protease/Amylase | [facility] | + + + + | 2021-11-15 00:00 | LIPASE/PROTEASE/AMYLASE | [facility] | + + + + | 2021-11-17 00:00 | LIPASE/PROTEASE/AMYLASE | [facility] | + + + + | 2022-10-25 00:00 | LIPASE/PROTEASE/AMYLASE | [facility] | + + + + | 2018-03-26 00:00 | DOXYCYCLINE HYCLATE | [facility] | + + + + | 2018-03-26 00:00 | DOXYCYCLINE HYCLATE | [facility] | + + + + | 2018-03-26 00:00 | DOXYCYCLINE HYCLATE | [facility] | + + + + | 2021-11-15 00:00 | NAPROXEN | [facility] | + + + + | 2021-11-17 00:00 | NAPROXEN | [facility] | + + + + | 2022-10-25 00:00 | NAPROXEN | [facility] | + + + + | 2018-03-26 00:00 | predniSONE | [facility] | + + + + | 2018-03-26 00:00 | predniSONE | [facility] | + + + + | 2018-03-26 00:00 | predniSONE | [facility] | + + + + | 2018-04-08 00:00 | LEVOFLOXACIN | [facility] | + + + + | 2018-04-08 00:00 | LEVOFLOXACIN | [facility] | + + + + | 2018-04-08 00:00 | LEVOFLOXACIN | [facility] | + + + + | 2021-11-15 00:00 | CEPHALEXIN | [facility] | + + + + | 2021-11-17 00:00 | CEPHALEXIN | [facility] | + + + + | 2022-10-25 00:00 | CEPHALEXIN | [facility] | + + + + | 2018-03-24 00:00 | AZITHROMYCIN | [facility] | + + + + | 2018-03-24 00:00 | AZITHROMYCIN | [facility] | + + + + | 2018-03-24 00:00 | AZITHROMYCIN | [facility] | + + + + | 2018-08-14 00:00 | CELECOXIB | [facility] | + + + + | 2018-08-14 00:00 | CELECOXIB | [facility] | + + + + | 2018-08-14 00:00 | CELECOXIB | [facility] | + + + + | 2021-11-15 00:00 | | [facility] | | | BUTALB/ACETAMINOPHEN/CAFFEI | | | | NE | | + + + + | 2021-11-17 00:00 | | [facility] | | | BUTALB/ACETAMINOPHEN/CAFFEI | | | | NE | | + + + + | 2022-10-25 00:00 | | [facility] | | | BUTALB/ACETAMINOPHEN/CAFFEI | | | | NE | | + + + + | 2021-11-15 00:00 | BENZONATATE | [facility] | + + + + | 2021-11-17 00:00 | BENZONATATE | [facility] | + + + + | 2022-10-25 00:00 | BENZONATATE | [facility] | + + + + | 2021-11-15 00:00 | SUMATRIPTAN SUCCINATE | [facility] | + + + + | 2021-11-17 00:00 | SUMATRIPTAN SUCCINATE | [facility] | + + + + | 2022-10-25 00:00 | SUMATRIPTAN SUCCINATE | [facility] | + + + + | 2021-11-15 00:00 | AMOXICILLIN | [facility] | + + + + | 2021-11-17 00:00 | AMOXICILLIN | [facility] | + + + + | 2022-10-25 00:00 | AMOXICILLIN | [facility] | + + + + | 2017-03-29 00:00 | CEPHALEXIN | [facility] | + + + + | 2017-03-29 00:00 | CEPHALEXIN | [facility] | + + + + | 2017-03-29 00:00 | CEPHALEXIN | [facility] | + + + + | 2018-08-14 00:00 | GABAPENTIN | [facility] | + + + + | 2018-08-14 00:00 | GABAPENTIN | [facility] | + + + + | 2018-08-14 00:00 | GABAPENTIN | [facility] | + + + + | 2021-11-15 00:00 | IBUPROFEN | [facility] | + + + + | 2021-11-17 00:00 | IBUPROFEN | [facility] | + + + + | 2022-10-25 00:00 | IBUPROFEN | [facility] | + + + + | 2018-03-24 00:00 | predniSONE | [facility] | + + + + | 2018-03-24 00:00 | predniSONE | [facility] | + + + + | 2018-03-24 00:00 | predniSONE | [facility] | + + + + | 2021-11-15 00:00 | SUMATRIPTAN SUCCINATE | [facility] | + + + + | 2021-11-17 00:00 | SUMATRIPTAN SUCCINATE | [facility] | + + + + | 2022-10-25 00:00 | SUMATRIPTAN SUCCINATE | [facility] | + + + + | 2018-03-26 00:00 | ALBUTEROL SULFATE | [facility] | + + + + | 2018-03-26 00:00 | ALBUTEROL SULFATE | [facility] | + + + + | 2018-03-26 00:00 | ALBUTEROL SULFATE | [facility] | + + + + | 2016-08-12 00:00 | ALBUTEROL SULFATE MDI | [facility] | | | (HFA) | | + + + + | 2016-08-12 00:00 | ALBUTEROL SULFATE MDI | [facility] | | | (HFA) | | + + + + | 2016-08-12 00:00 | ALBUTEROL SULFATE MDI | [facility] | | | (HFA) | | + + + + | 2018-04-08 00:00 | METHYLPREDNISOLONE | [facility] | + + + + | 2018-04-08 00:00 | METHYLPREDNISOLONE | [facility] | + + + + | 2018-04-08 00:00 | METHYLPREDNISOLONE | [facility] | + + + + | 2021-11-15 00:00 | METHYLPREDNISOLONE | [facility] | + + + + | 2021-11-17 00:00 | METHYLPREDNISOLONE | [facility] | + + + + | 2022-10-25 00:00 | METHYLPREDNISOLONE | [facility] | + + + + | 2021-11-15 00:00 | CYCLOBENZAPRINE HCL | [facility] | + + + + | 2021-11-17 00:00 | CYCLOBENZAPRINE HCL | [facility] | + + + + | 2022-10-25 00:00 | CYCLOBENZAPRINE HCL | [facility] | + + + + | 2021-11-08 00:00 | CYCLOBENZAPRINE HCL | [facility] | + + + + | 2021-11-08 00:00 | CYCLOBENZAPRINE HCL | [facility] | + + + + | 2021-11-08 00:00 | CYCLOBENZAPRINE HCL | [facility] | + + + + | 2021-11-15 00:00 | CHOLESTYRAMINE (WITH | [facility] | | | SUGAR) | | + + + + | 2021-11-17 00:00 | CHOLESTYRAMINE (WITH | [facility] | | | SUGAR) | | + + + + | 2022-10-25 00:00 | CHOLESTYRAMINE (WITH | [facility] | | | SUGAR) | | + + + + | 2021-11-15 00:00 | HYDROCODONE | [facility] | | | BIT/ACETAMINOPHEN | | + + + + | 2021-11-17 00:00 | HYDROCODONE | [facility] | | | BIT/ACETAMINOPHEN | | + + + + | 2022-10-25 00:00 | HYDROCODONE | [facility] | | | BIT/ACETAMINOPHEN | | + + + + | 2018-08-14 00:00 | HYDROCODONE | [facility] | | | BIT/ACETAMINOPHEN | | + + + + | 2018-08-14 00:00 | HYDROCODONE | [facility] | | | BIT/ACETAMINOPHEN | | + + + + | 2018-08-14 00:00 | HYDROCODONE | [facility] | | | BIT/ACETAMINOPHEN | | + + + + | 2021-11-15 00:00 | ALBUTEROL SULFATE | [facility] | + + + + | 2021-11-17 00:00 | ALBUTEROL SULFATE | [facility] | + + + + | 2022-10-25 00:00 | ALBUTEROL SULFATE | [facility] | + + + + | 2021-11-15 00:00 | FLUTICASONE/SALMETEROL | [facility] | + + + + | 2021-11-17 00:00 | FLUTICASONE/SALMETEROL | [facility] | + + + + | 2022-10-25 00:00 | FLUTICASONE/SALMETEROL | [facility] | + + + + | 2021-11-15 00:00 | BUDESONIDE | [facility] | + + + + | 2021-11-17 00:00 | BUDESONIDE | [facility] | + + + + | 2022-10-25 00:00 | BUDESONIDE | [facility] | + + + + | 2017-03-29 00:00 | DICYCLOMINE HCL | [facility] | + + + + | 2017-03-29 00:00 | DICYCLOMINE HCL | [facility] | + + + + | 2017-03-29 00:00 | DICYCLOMINE HCL | [facility] | + + + + | 2021-11-15 00:00 | PROMETHAZINE HCL | [facility] | + + + + | 2021-11-17 00:00 | PROMETHAZINE HCL | [facility] | + + + + | 2022-10-25 00:00 | PROMETHAZINE HCL | [facility] | + + + + | 2021-11-15 00:00 | PROMETHAZINE HCL | [facility] | + + + + | 2021-11-17 00:00 | PROMETHAZINE HCL | [facility] | + + + + | 2022-10-25 00:00 | PROMETHAZINE HCL | [facility] | + + + + | 2018-04-08 00:00 | Codeine | [facility] | | | Phosphate/Guaifenesin | | + + + + | 2018-04-08 00:00 | Codeine | [facility] | | | Phosphate/Guaifenesin | | + + + + | 2018-04-08 00:00 | Codeine | [facility] | | | Phosphate/Guaifenesin | | + + + + Problems + + + + | date | description | facility | + + + + | 2016-01-13 00:00 | Swelling of right hand | [facility] | + + + + | 2016-01-13 00:00 | Swelling of right hand | [facility] | + + + + | 2016-01-13 00:00 | Swelling of right hand | [facility] | + + + + | 2016-02-25 00:00 | Encounter for medical | [facility] | | | screening examination | | + + + + | 2016-02-25 00:00 | Encounter for medical | [facility] | | | screening examination | | + + + + | 2016-02-25 00:00 | Encounter for medical | [facility] | | | screening examination | | + + + + | 2016-03-07 00:00 | Dysfunctional uterine | [facility] | | | bleeding | | + + + + | 2016-03-07 00:00 | Dysfunctional uterine | [facility] | | | bleeding | | + + + + | 2016-03-07 00:00 | Dysfunctional uterine | [facility] | | | bleeding | | + + + + | 2016-03-08 00:00 | Dysfunctional uterine | [facility] | | | bleeding | | + + + + | 2016-03-08 00:00 | Dysfunctional uterine | [facility] | | | bleeding | | + + + + | 2016-03-08 00:00 | Dysfunctional uterine | [facility] | | | bleeding | | + + + + | 2016-08-12 00:00 | Adverse effect of drug | [facility] | + + + + | 2016-08-12 00:00 | Adverse effect of drug | [facility] | + + + + | 2016-08-12 00:00 | Adverse effect of drug | [facility] | + + + + | 2017-03-29 00:00 | Cystitis | [facility] | + + + + | 2017-03-29 00:00 | Cystitis | [facility] | + + + + | 2017-03-29 00:00 | Cystitis | [facility] | + + + + | 2017-03-29 00:00 | Bladder spasm | [facility] | + + + + | 2017-03-29 00:00 | Bladder spasm | [facility] | + + + + | 2017-03-29 00:00 | Bladder spasm | [facility] | + + + + | 2018-03-24 00:00 | Atypical pneumonia | [facility] | + + + + | 2018-03-24 00:00 | Atypical pneumonia | [facility] | + + + + | 2018-03-24 00:00 | Atypical pneumonia | [facility] | + + + + | 2018-03-24 00:00 | Asthma | [facility] | + + + + | 2018-03-24 00:00 | Asthma | [facility] | + + + + | 2018-03-24 00:00 | Asthma | [facility] | + + + + | 2018-03-26 00:00 | Acute bronchitis with | [facility] | | | bronchospasm | | + + + + | 2018-03-26 00:00 | Acute bronchitis with | [facility] | | | bronchospasm | | + + + + | 2018-03-26 00:00 | Acute bronchitis with | [facility] | | | bronchospasm | | + + + + | 2018-04-08 00:00 | Upper respiratory tract | [facility] | | | infection | | + + + + | 2018-04-08 00:00 | Upper respiratory tract | [facility] | | | infection | | + + + + | 2018-04-08 00:00 | Upper respiratory tract | [facility] | | | infection | | + + + + | 2018-04-08 00:00 | Acute exacerbation of | [facility] | | | chronic obstructive | | | | pulmonary disease | | + + + + | 2018-04-08 00:00 | Acute exacerbation of | [facility] | | | chronic obstructive | | | | pulmonary disease | | + + + + | 2018-04-08 00:00 | Acute exacerbation of | [facility] | | | chronic obstructive | | | | pulmonary disease | | + + + + | 2018-11-27 00:00 | Vomiting and diarrhea | [facility] | + + + + | 2018-11-27 00:00 | Vomiting and diarrhea | [facility] | + + + + | 2018-11-27 00:00 | Vomiting and diarrhea | [facility] | + + + + | 2018-11-27 00:00 | Dizziness | [facility] | + + + + | 2018-11-27 00:00 | Dizziness | [facility] | + + + + | 2018-11-27 00:00 | Dizziness | [facility] | + + + + | 2018-11-27 00:00 | Unintended weight loss | [facility] | + + + + | 2018-11-27 00:00 | Unintended weight loss | [facility] | + + + + | 2018-11-27 00:00 | Unintended weight loss | [facility] | + + + + | 2019-01-10 00:00 | Patient left without being | [facility] | | | seen | | + + + + | 2019-01-10 00:00 | Patient left without being | [facility] | | | seen | | + + + + | 2019-01-10 00:00 | Patient left without being | [facility] | | | seen | | + + + + | 2019-01-25 00:00 | Flank pain | [facility] | + + + + | 2019-01-25 00:00 | Flank pain | [facility] | + + + + | 2019-01-25 00:00 | Flank pain | [facility] | + + + + | 2019-06-01 00:00 | Otitis externa of left ear | [facility] | | | | | + + + + | 2019-06-01 00:00 | Otitis externa of left ear | [facility] | | | | | + + + + | 2019-06-01 00:00 | Otitis externa of left ear | [facility] | | | | | + + + + | 2019-06-01 00:00 | Left otitis media | [facility] | + + + + | 2019-06-01 00:00 | Left otitis media | [facility] | + + + + | 2019-06-01 00:00 | Left otitis media | [facility] | + + + + | 2020-05-28 00:00 | Enteritis | [facility] | + + + + | 2020-05-28 00:00 | Enteritis | [facility] | + + + + | 2020-05-28 00:00 | Enteritis | [facility] | + + + + | 2021-02-03 00:00 | Sciatica of left side | [facility] | + + + + | 2021-02-03 00:00 | Sciatica of left side | [facility] | + + + + | 2021-02-03 00:00 | Sciatica of left side | [facility] | + + + + | 2022-06-21 07:39 | SHORTNESS OF BREATH | [facility] | + + + + | 2022-06-21 07:39 | WHEEZING | [facility] | + + + + | 2022-08-16 15:37 | RIGHT UPPER QUADRANT PAIN | [facility] | + + + + | 2022-09-25 15:39 | UNILATERAL PRIMARY | [facility] | | | OSTEOARTHRITIS, RIGHT KNEE | | + + + + | 2022-09-25 15:39 | PAIN IN RIGHT KNEE | [facility] | + + + + | 2022-09-28 09:00 | DYSPHAGIA, UNSPECIFIED | [facility] | + + + + | 2022-10-25 00:00 | Gastritis | [facility] | + + + + | 2022-10-25 08:07 | NICOTINE DEPENDENCE, | [facility] | | | UNSPECIFIED, UNCOMPLICATED | | + + + + | 2022-10-25 08:07 | CHRONIC OBSTRUCTIVE | [facility] | | | PULMONARY DISEASE, | | | | UNSPECIFIED | | + + + + | 2022-10-25 08:07 | GASTRITIS, UNSPECIFIED, | [facility] | | | WITHOUT BLEEDING | | + + + + | 2022-10-25 08:07 | UNSPECIFIED ABDOMINAL PAIN | [facility] | | | | | + + + + | 2022-10-25 08:07 | OTHER [facility] (CURRENT) | [facility] | | | DRUG THERAPY | | + + + + | 2022-10-25 08:07 | ALLERGY STATUS TO | [facility] | | | PENICILLIN | | + + + + | 2022-10-25 08:07 | ALLERGY STATUS TO NARCOTIC | [facility] | | | AGENT STATUS | | + + + + | 2022-10-25 08:07 | ALLERGY STATUS TO OTH | [facility] | | | DRUG/MEDS/BIOL SUBST STATUS | | | | | | + + + + | 2022-10-27 11:56 | PAIN IN RIGHT KNEE | [facility] | + + + + | 2022-10-27 11:56 | UNSTEADINESS ON FEET | [facility] | + + + + | 2022-11-06 06:29 | PAIN IN RIGHT KNEE | [facility] | + + + + | 2022-11-06 06:29 | UNSTEADINESS ON FEET | [facility] | + + + + | 2022-11-16 09:55 | GASTRO-ESOPHAGEAL REFLUX | [facility] | | | DISEASE WITHOUT ESOPHAGITIS | | | | | | + + + + | 2022-11-16 09:55 | GASTRO-ESOPHAGEAL REFLUX | [facility] | | | DISEASE WITHOUT | | + + + + | 2022-11-16 09:55 | NONINFECTIVE | [facility] | | | GASTROENTERITIS AND | | | | COLITIS, UNSPECIF | | + + + + | 2022-11-16 09:55 | DYSPHAGIA, UNSPECIFIED | [facility] | + + + + | 2022-11-16 09:55 | ABDOMINAL DISTENSION | [facility] | | | (GASEOUS) | | + + + + | 2022-11-16 09:55 | ABNORMAL WEIGHT GAIN | [facility] | + + + + | 2022-11-16 10:00 | GASTRO-ESOPHAGEAL REFLUX | [facility] | | | DISEASE WITHOUT | | + + + + | 2022-11-16 10:00 | DYSPHAGIA, UNSPECIFIED | [facility] | + + + + | 2022-12-05 08:47 | UNILATERAL PRIMARY | [facility] | | | OSTEOARTHRITIS, RIGHT KNEE | | + + + + | 2022-12-05 08:47 | EFFUSION, RIGHT KNEE | [facility] | + + + + | 2022-12-05 08:47 | PAIN IN RIGHT KNEE | [facility] | + + + + | 2022-12-05 08:47 | OTHER SPECIFIED DISORDERS | [facility] | | | OF BONE, LOWER LEG | | + + + + | 2022-12-05 09:00 | PAIN IN RIGHT KNEE | [facility] | + + + + | 2023-01-22 17:00 | VENTRICULAR PREMATURE | [facility] | | | DEPOLARIZATION | | + + + + Procedures No information. Results/Labs +--------+--------+ +---------+--------+---------+ | test | date | facility | value | unit | notes | +--------+--------+ +---------+--------+---------+ + + | Result panel 1 | + + + + + + + + + | | 2021-11-08 | [facility] | YELLOW | (missing) | (missing) | | (unavailable | 10:10 | [facility] | | | | + + + + + + + + + | Result panel 2 | + + + + + + + + + | | 2021-11-08 | [facility] | [facility] | (missing) | (missing) | | (unavailable | 10:10 | [facility] | | | | ) | | [facility] | | | | + + + + + + + + + | Result panel 3 | + + + + + + + + + | | 2021-11-08 | [facility] | NEGATIVE | (missing) | (missing) | | (unavailable | 10:10 | [facility] | | | | + + + + + + + + + | Result panel 4 | + + + + + + + + + | | 2021-11-08 | [facility] | POSITIVE | (missing) | (missing) | | (unavailable | 10:10 [facility] | | | | + + + + + + + + + | Result panel 5 | + + + + + + + + + | | 2021-11-08 | [facility] | NEGATIVE | (missing) | (missing) | | (unavailable | 10:10 [facility] | | | | + + + + + + + + + | Result panel 6 | + + + + + + + + + | | 2021-11-08 | [facility] | >=1.030 | (missing) | (missing) | | (unavailable | 10:10 [facility] | | | + + + + + + + + + | Result panel 7 | + + + + + +---------+ + + | | 2021-11-08 | [facility] | SMALL | (missing) | (missing) | | (unavailable | 10:10 [facility] | | | + + + +---------+ + + + + | Result panel 8 | + + + + + +-------+ + + | | 2021-11-08 | [facility] | 5.0 | (missing) | (missing) | | (unavailable | 10:10 [facility] | | | + + + +-------+ + + + + | Result panel 9 | + + + + + + + + + | | 2021-11-08 | [facility] | NEGATIVE | (missing) | (missing) | | (unavailable | 10:10 [facility] | | | + + + + + + + + + | Result panel 10 | + + + + + + + + + | | 2021-11-08 | [facility] | NORMAL | (missing) | (missing) | | (unavailable | 10:10 [facility] | | | + + + + + + + + + | Result panel 11 | + + + + + + + + + | | 2021-11-08 | [facility] | NEGATIVE | (missing) | (missing) | | (unavailable | 10:10 [facility] | | | + + + + + + + + + | Result panel 12 | + + + + + +---------+ + + | | 2021-11-08 | [facility] | TRACE | (missing) | (missing) | | (unavailable | 10:10 [facility] | | | + + + +---------+ + + + + | Result panel 13 | + + + + + +-------+ + + | | 2021-11-08 | [facility] | 2-3 | (missing) | (missing) | | (unavailable | 10:10 [facility] | | | + + + +-------+ + + + + | Result panel 14 | + + + + + +-------+ + + | | 2021-11-08 | [facility] | 4-6 | (missing) | (missing) | | (unavailable | 10:10 [facility] | | | + + + +-------+ + + + + | Result panel 15 | + + + + + + + + + | | 2021-11-08 | [facility] | SQUAMOUS 2+ | (missing) | (missing) | | (unavailable | 10:10 [facility] | | | + + + + + + + + + | Result panel 16 | + + + + + + + + + | | 2021-11-08 | [facility] | NONE SEEN | (missing) | (missing) | | (unavailable | 10:10 [facility] | | | + + + + + + + + + | Result panel 17 | + + + + + +------+ + + | | 2021-11-08 | [facility] | 1+ | (missing) | (missing) | | (unavailable | 10:10 [facility] | | | | + + + +------+ + + + + | Result panel 18 | + + + + + + + + + | | 2021-11-08 | [facility] | NONE SEEN | (missing) | (missing) | | (unavailable | 10:10 [facility] | | | | + + + + + + + + + | Result panel 19 | + + + + + +------+ + + | | 2021-11-08 | [facility] | No | (missing) | (missing) | | (unavailable | 10:10 [facility] | | | | + + + +------+ + + + + | Result panel 20 | + + + + + + + + + | | 2021-11-08 | [facility] | CLEAN CATCH | (missing) | (missing) | | (unavailable | 10:10 [facility] | | | | + + + + + + + + + | Result panel 21 | + + + + + + + + + | | 2021-11-08 | [facility] | YELLOW | (missing) | (missing) | | (unavailable | 10:10 [facility] | | | | + + + + + + + + + | Result panel 22 | + + + + + + + + + | | 2021-11-08 | [facility] | SL CLOUDY | (missing) | (missing) | | (unavailable | 10:10 [facility] | | | | + + + + + + + + + | Result panel 23 | + + + + + + + + + | | 2021-11-08 | [facility] | NEGATIVE | (missing) | (missing) | | (unavailable | 10:10 [facility] | | | + + + + + + + + + | Result panel 24 | + + + + + + + + + | | 2021-11-08 | [facility] | POSITIVE | (missing) | (missing) | | (unavailable | 10:10 [facility] | | | + + + + + + + + + | Result panel 25 | + + + + + + + + + | | 2021-11-08 | [facility] | NEGATIVE | (missing) | (missing) | | (unavailable | 10:10 [facility] | | | + + + + + + + + + | Result panel 26 | + + + + + + + + + | | 2021-11-08 | [facility] | >=1.030 | (missing) | (missing) | | (unavailable | 10:10 [facility] | | | + + + + + + + + + | Result panel 27 | + + + + + +---------+ + + | | 2021-11-08 | [facility] | SMALL | (missing) | (missing) | | (unavailable | 10:10 [facility] | | | + + + +---------+ + + + + | Result panel 28 | + + + + + +-------+ + + | | 2021-11-08 | [facility] | 5.0 | (missing) | (missing) | | (unavailable | 10:10 [facility] | | | | + + + +-------+ + + + + | Result panel 29 | + + + + + + + + + | | 2021-11-08 | [facility] | NEGATIVE | (missing) | (missing) | | (unavailable | 10:10 [facility] | | | | + + + + + + + + + | Result panel 30 | + + + + + + + + + | | 2021-11-08 | [facility] | NORMAL | (missing) | (missing) | | (unavailable | 10:10 [facility] | | | + + + + + + + + + | Result panel 31 | + + + + + + + + + | | 2021-11-08 | [facility] | NEGATIVE | (missing) | (missing) | | (unavailable | 10:10 [facility] | | | + + + + + + + + + | Result panel 32 | + + + + + +---------+ + + | | 2021-11-08 | [facility] | TRACE | (missing) | (missing) | | (unavailable | 10:10 [facility] | | | + + + +---------+ + + + + | Result panel 33 | + + + + + +-------+ + + | | 2021-11-08 | [facility] | 2-3 | (missing) | (missing) | | (unavailable | 10:10 [facility] | | | + + + +-------+ + + + + | Result panel 34 | + + + + + +-------+ + + | | 2021-11-08 | [facility] | 4-6 | (missing) | (missing) | | (unavailable | 10:10 [facility] | | | + + + +-------+ + + + + | Result panel 35 | + + + + + + + + + | | 2021-11-08 | [facility] | SQUAMOUS 2+ | (missing) | (missing) | | (unavailable | 10:10 [facility] | | | | + + + + + + + + + | Result panel 36 | + + + + + + + + + | | 2021-11-08 | [facility] | NONE SEEN | (missing) | (missing) | | (unavailable | 10:10 [facility] | | | | + + + + + + + + + | Result panel 37 | + + + + + +------+ + + | | 2021-11-08 | [facility] | 1+ | (missing) | (missing) | | (unavailable | 10:10 [facility] | | | + + + +------+ + + + + | Result panel 38 | + + + + + + + + + | | 2021-11-08 | [facility] | NONE SEEN | (missing) | (missing) | | (unavailable | 10:10 [facility] | | | + + + + + + + + + | Result panel 39 | + + + + + +------+ + + | | 2021-11-08 | [facility] | No | (missing) | (missing) | | (unavailable | 10:10 [facility] | | | + + + +------+ + + + + | Result panel 40 | + + + + + + + + + | | 2021-11-08 | [facility] | CLEAN CATCH | (missing) | (missing) | | (unavailable | 10:10 [facility] | | | | + + + + + + + + + | Result panel 41 | + + + + + +------+ + + | | 2021-11-08 | [facility] | 54 | (missing) | (missing) | | (unavailable | 11:20 | [facility] | | | | + + + +------+ + + + + | Result panel 42 | + + + + + +------+ + + | | 2021-11-08 | [facility] | 89 | (missing) | (missing) | | (unavailable | 11:20 [facility] | | | + + + +------+ + + + + | Result panel 43 | + + + + + +-------+ + + | | 2021-11-08 | [facility] | 7.4 | (missing) | (missing) | | (unavailable | 11:20 [facility] | | | + + + +-------+ + + + + | Result panel 44 | + + + + + +--------+ + + | | 2021-11-08 | [facility] | 5.29 | (missing) | (missing) | | (unavailable | 11:20 [facility] | | | + + + +--------+ + + + + | Result panel 45 | + + + + + +--------+ + + | | 2021-11-08 | [facility] | 15.1 | (missing) | (missing) | | (unavailable | 11:20 [facility] | | | + + + +--------+ + + + + | Result panel 46 | + + + + + +--------+ + + | | 2021-11-08 | [facility] | 45.4 | (missing) | (missing) | | (unavailable | 11:20 [facility] | | | + + + +--------+ + + + + | Result panel 47 | + + + + + +--------+ + + | | 2021-11-08 | [facility] | 85.8 | (missing) | (missing) | | (unavailable | 11:20 [facility] | | | + + + +--------+ + + + + | Result panel 48 | + + + + + +--------+ + + | | 2021-11-08 | [facility] | 28.5 | (missing) | (missing) | | (unavailable | 11:20 [facility] | | | + + + +--------+ + + + + | Result panel 49 | + + + + + +--------+ + + | | 2021-11-08 | [facility] | 33.2 | (missing) | (missing) | | (unavailable | 11:20 [facility] | | | + + + +--------+ + + + + | Result panel 50 | + + + + + +--------+ + + | | 2021-11-08 | [facility] | 13.3 | (missing) | (missing) | | (unavailable | 11:20 [facility] | | | + + + +--------+ + + + + | Result panel 51 | + + + + + +-------+ + + | | 2021-11-08 | [facility] | 286 | (missing) | (missing) | | (unavailable | 11:20 | [facility] | | | + + + +-------+ + + + + | Result panel 52 | + + + + + +--------+ + + | | 2021-11-08 | [facility] | 52.7 | (missing) | (missing) | | (unavailable | 11:20 [facility] | | | + + + +--------+ + + + + | Result panel 53 | + + + + + +--------+ + + | | 2021-11-08 | [facility] | 36.8 | (missing) | (missing) | | (unavailable | 11:20 [facility] | | | + + + +--------+ + + + + | Result panel 54 | + + + + + +-------+ + + | | 2021-11-08 | [facility] | 8.1 | (missing) | (missing) | | (unavailable | 11:20 [facility] | | | + + + +-------+ + + + + | Result panel 55 | + + + + + +-------+ + + | | 2021-11-08 | [facility] | 1.3 | (missing) | (missing) | | (unavailable | 11:20 [facility] | | | + + + +-------+ + + + + | Result panel 56 | + + + + + +-------+ + + | | 2021-11-08 | [facility] | 1.1 | (missing) | (missing) | | (unavailable | 11:20 [facility] | | | + + + +-------+ + + + + | Result panel 57 | + + + + + +------+---------+ + | | 2021-11-08 | [facility] | 87 | mg/dL | (missing) | | (unavailable | 11:20 [facility] | | | | + + + +------+---------+ + + + | Result panel 58 | + + + + + +------+---------+ + | | 2021-11-08 | [facility] | 11 | mg/dL | (missing) | | (unavailable | 11:20 [facility] | | | + + + +------+---------+ + + + | Result panel 59 | + + + + + +--------+---------+ + | | 2021-11-08 | [facility] | 0.83 | mg/dL | (missing) | | (unavailable | 11:20 [facility] | | | + + + +--------+---------+ + + + | Result panel 60 | + + + + + +------+ + + | | 2021-11-08 | [facility] | 87 | (missing) | (missing) | | (unavailable | 11:20 [facility] | | | + + + +------+ + + + + | Result panel 61 | + + + + + +---------+ + + | | 2021-11-08 | [facility] | 13.25 | (missing) | (missing) | | (unavailable | 11:20 [facility] | | | + + + +---------+ + + + + | Result panel 62 | + + + + + +-------+ + + | | 2021-11-08 | [facility] | 139 | (missing) | (missing) | | (unavailable | 11:20 [facility] | | | + + + +-------+ + + + + | Result panel 63 | + + + + + +-------+ + + | | 2021-11-08 | [facility] | 4.1 | (missing) | (missing) | | (unavailable | 11:20 [facility] | | | + + + +-------+ + + + + | Result panel 64 | + + + + + +-------+ + + | | 2021-11-08 | [facility] | 102 | (missing) | (missing) | | (unavailable | 11:20 [facility] | | | + + + +-------+ + + + + | Result panel 65 | + + + + + +------+ + + | | 2021-11-08 | [facility] | 27 | (missing) | (missing) | | (unavailable | 11:20 [facility] | | | + + + +------+ + + + + | Result panel 66 | + + + + + +--------+ + + | | 2021-11-08 | [facility] | 14.1 | (missing) | (missing) | | (unavailable | 11:20 [facility] | | | + + + +--------+ + + + + | Result panel 67 | + + + + + +-------+---------+ + | | 2021-11-08 | [facility] | 9.0 | mg/dL | (missing) | | (unavailable | 11:20 [facility] | | | + + + +-------+---------+ + + + | Result panel 68 | + + + + + +-------+ + + | | 2021-11-08 | [facility] | 7.5 | (missing) | (missing) | | (unavailable | 11:20 [facility] | | | | + + + +-------+ + + + + | Result panel 69 | + + + + + +-------+ + + | | 2021-11-08 | [facility] | 4.0 | (missing) | (missing) | | (unavailable | 11:20 [facility] | | | | + + + +-------+ + + + + | Result panel 70 | + + + + + +-------+ + + | | 2021-11-08 | [facility] | 3.5 | (missing) | (missing) | | (unavailable | 11:20 [facility] | | | + + + +-------+ + + + + | Result panel 71 | + + + + + +--------+ + + | | 2021-11-08 | [facility] | 1.14 | (missing) | (missing) | | (unavailable | 11:20 [facility] | | | + + + +--------+ + + + + | Result panel 72 | + + + + + +-------+ + + | | 2021-11-08 | [facility] | 0.4 | (missing) | (missing) | | (unavailable | 11:20 [facility] | | | + + + +-------+ + + + + | Result panel 73 | + + + + + +------+ + + | | 2021-11-08 | [facility] | 16 | (missing) | (missing) | | (unavailable | 11:20 [facility] | | | | + + + +------+ + + + + | Result panel 74 | + + + + + +------+ + + | | 2021-11-08 | [facility] | 21 | (missing) | (missing) | | (unavailable | 11:20 [facility] | | | | + + + +------+ + + + + | Result panel 75 | + + + + + +------+ + + | | 2021-11-08 | [facility] | 54 | (missing) | (missing) | | (unavailable | 11:20 [facility] | | | + + + +------+ + + + + | Result panel 76 | + + + + + +------+ + + | | 2021-11-08 | [facility] | 89 | (missing) | (missing) | | (unavailable | 11:20 [facility] | | | + + + +------+ + + + + | Result panel 77 | + + + + + +-------+ + + | | 2021-11-08 | [facility] | 7.4 | (missing) | (missing) | | (unavailable | 11:20 [facility] | | | + + + +-------+ + + + + | Result panel 78 | + + + + + +--------+ + + | | 2021-11-08 | [facility] | 5.29 | (missing) | (missing) | | (unavailable | 11:20 [facility] | | | + + + +--------+ + + + + | Result panel 79 | + + + + + +--------+ + + | | 2021-11-08 | [facility] | 15.1 | (missing) | (missing) | | (unavailable | 11:20 [facility] | | | + + + +--------+ + + + + | Result panel 80 | + + + + + +--------+ + + | | 2021-11-08 | [facility] | 45.4 | (missing) | (missing) | | (unavailable | 11:20 [facility] | | | + + + +--------+ + + + + | Result panel 81 | + + + + + +--------+ + + | | 2021-11-08 | [facility] | 85.8 | (missing) | (missing) | | (unavailable | 11:20 [facility] | | | + + + +--------+ + + + + | Result panel 82 | + + + + + +--------+ + + | | 2021-11-08 | [facility] | 28.5 | (missing) | (missing) | | (unavailable | 11:20 [facility] | | | + + + +--------+ + + + + | Result panel 83 | + + + + + +--------+ + + | | 2021-11-08 | [facility] | 33.2 | (missing) | (missing) | | (unavailable | 11:20 [facility] | | | + + + +--------+ + + + + | Result panel 84 | + + + + + +--------+ + + | | 2021-11-08 | [facility] | 13.3 | (missing) | (missing) | | (unavailable | 11:20 [facility] | | | + + + +--------+ + + + + | Result panel 85 | + + + + + +-------+ + + | | 2021-11-08 | [facility] | 286 | (missing) | (missing) | | (unavailable | 11:20 [facility] | | | + + + +-------+ + + + + | Result panel 86 | + + + + + +--------+ + + | | 2021-11-08 | [facility] | 52.7 | (missing) | (missing) | | (unavailable | 11:20 [facility] | | | + + + +--------+ + + + + | Result panel 87 | + + + + + +--------+ + + | | 2021-11-08 | [facility] | 36.8 | (missing) | (missing) | | (unavailable | 11:20 [facility] | | | + + + +--------+ + + + + | Result panel 88 | + + + + + +-------+ + + | | 2021-11-08 | [facility] | 8.1 | (missing) | (missing) | | (unavailable | 11:20 [facility] | | | + + + +-------+ + + + + | Result panel 89 | + + + + + +-------+ + + | | 2021-11-08 | [facility] | 1.3 | (missing) | (missing) | | (unavailable | 11:20 [facility] | | | + + + +-------+ + + + + | Result panel 90 | + + + + + +-------+ + + | | 2021-11-08 | [facility] | 1.1 | (missing) | (missing) | | (unavailable | 11:20 [facility] | | | + + + +-------+ + + + + | Result panel 91 | + + + + + +------+---------+ + | | 2021-11-08 | [facility] | 87 | mg/dL | (missing) | | (unavailable | 11:20 [facility] | | | | + + + +------+---------+ + + + | Result panel 92 | + + + + + +------+---------+ + | | 2021-11-08 | [facility] | 11 | mg/dL | (missing) | | (unavailable | 11:20 [facility] | | | + + + +------+---------+ + + + | Result panel 93 | + + + + + +--------+---------+ + | | 2021-11-08 | [facility] | 0.83 | mg/dL | (missing) | | (unavailable | 11:20 [facility] | | | + + + +--------+---------+ + + + | Result panel 94 | + + + + + +------+ + + | | 2021-11-08 | [facility] | 87 | (missing) | (missing) | | (unavailable | 11:20 [facility] | | | + + + +------+ + + + + | Result panel 95 | + + + + + +---------+ + + | | 2021-11-08 | [facility] | 13.25 | (missing) | (missing) | | (unavailable | 11:20 [facility] | | | | + + + +---------+ + + + + | Result panel 96 | + + + + + +-------+ + + | | 2021-11-08 | [facility] | 139 | (missing) | (missing) | | (unavailable | 11:20 [facility] | | | | + + + +-------+ + + + + | Result panel 97 | + + + + + +-------+ + + | | 2021-11-08 | [facility] | 4.1 | (missing) | (missing) | | (unavailable | 11:20 [facility] | | | | + + + +-------+ + + + + | Result panel 98 | + + + + + +-------+ + + | | 2021-11-08 | [facility] | 102 | (missing) | (missing) | | (unavailable | 11:20 [facility] | | | | + + + +-------+ + + + + | Result panel 99 | + + + + + +------+ + + | | 2021-11-08 | [facility] | 27 | (missing) | (missing) | | (unavailable | 11:20 [facility] | | | | + + + +------+ + + + + | Result panel 100 | + + + + + +--------+ + + | | 2021-11-08 | [facility] | 14.1 | (missing) | (missing) | | (unavailable | 11:20 [facility] | | | + + + +--------+ + + + + | Result panel 101 | + + + + + +-------+---------+ + | | 2021-11-08 | [facility] | 9.0 | mg/dL | (missing) | | (unavailable | 11:20 [facility] | | | | + + + +-------+---------+ + + + | Result panel 102 | + + + + + +-------+ + + | | 2021-11-08 | [facility] | 7.5 | (missing) | (missing) | | (unavailable | 11:20 [facility] | | | | + + + +-------+ + + + + | Result panel 103 | + + + + + +-------+ + + | | 2021-11-08 | [facility] | 4.0 | (missing) | (missing) | | (unavailable | 11:20 [facility] | | | | + + + +-------+ + + + + | Result panel 104 | + + + + + +-------+ + + | | 2021-11-08 | [facility] | 3.5 | (missing) | (missing) | | (unavailable | 11:20 [facility] | | | | + + + +-------+ + + + + | Result panel 105 | + + + + + +--------+ + + | | 2021-11-08 | [facility] | 1.14 | (missing) | (missing) | | (unavailable | 11:20 [facility] | | | + + + +--------+ + + + + | Result panel 106 | + + + + + +-------+ + + | | 2021-11-08 | [facility] | 0.4 | (missing) | (missing) | | (unavailable | 11:20 [facility] | | | + + + +-------+ + + + + | Result panel 107 | + + + + + +------+ + + | | 2021-11-08 | [facility] | 16 | (missing) | (missing) | | (unavailable | 11:20 [facility] | | | + + + +------+ + + + + | Result panel 108 | + + + + + +------+ + + | | 2021-11-08 | [facility] | 21 | (missing) | (missing) | | (unavailable | 11:20 [facility] | | | | + + + +------+ + + + + | Result panel 109 | + + + + + +--------+ + + | | 2022-10-25 | [facility] | 14.9 | (missing) | (missing) | | (unavailable | 08:44:07 | [facility] | | | + + + +--------+ + + + + | Result panel 110 | + + + + + +--------+ + + | | 2022-10-25 | [facility] | 73.6 | (missing) | (missing) | | (unavailable | 08:44:07 [facility] | | | | + + + +--------+ + + + + | Result panel 111 | + + + + + +--------+ + + | | 2022-10-25 | [facility] | 14.8 | (missing) | (missing) | | (unavailable | 08:44:07 [facility] | | | | + + + +--------+ + + + + | Result panel 112 | + + + + + +-------+ + + | | 2022-10-25 | [facility] | 7.3 | (missing) | (missing) | | (unavailable | 08:44:07 [facility] | | | + + + +-------+ + + + + | Result panel 113 | + + + + + +-------+ + + | | 2022-10-25 | [facility] | 3.7 | (missing) | (missing) | | (unavailable | 08:44:07 [facility] | | | | + + + +-------+ + + + + | Result panel 114 | + + + + + +-------+ + + | | 2022-10-25 | [facility] | 0.6 | (missing) | (missing) | | (unavailable | 08:44:07 [facility] | | | | + + + +-------+ + + + + | Result panel 115 | + + + + + +--------+ + + | | 2022-10-25 | [facility] | 5.68 | (missing) | (missing) | | (unavailable | 08:44:07 [facility] | | | | + + + +--------+ + + + + | Result panel 116 | + + + + + +-------+---------+ + | | 2022-10-25 | [facility] | 113 | mg/dL | (missing) | | (unavailable | 08:44:07 [facility] | | | | + + + +-------+---------+ + + + | Result panel 117 | + + + + + +------+---------+ + | | 2022-10-25 | [facility] | 11 | mg/dL | (missing) | | (unavailable | 08:44:07 [facility] | | | | + + + +------+---------+ + + + | Result panel 118 | + + + + + +--------+---------+ + | | 2022-10-25 | [facility] | 0.83 | mg/dL | (missing) | | (unavailable | 08:44:07 [facility] | | | | + + + +--------+---------+ + + + | Result panel 119 | + + + + + +--------+ + + | | 2022-10-25 | [facility] | 16.0 | (missing) | (missing) | | (unavailable | 08:44:07 [facility] | | | | + + + +--------+ + + + + | Result panel 120 | + + + + + +------+ + + | | 2022-10-25 | [facility] | 87 | (missing) | (missing) | | (unavailable | 08:44:07 [facility] | | | | + + + +------+ + + + + | Result panel 121 | + + + + + +---------+ + + | | 2022-10-25 | [facility] | 13.25 | (missing) | (missing) | | (unavailable | 08:44:07 [facility] | | | | + + + +---------+ + + + + | Result panel 122 | + + + + + +-------+ + + | | 2022-10-25 | [facility] | 137 | (missing) | (missing) | | (unavailable | 08:44:07 [facility] | | | | + + + +-------+ + + + + | Result panel 123 | + + + + + +-------+ + + | | 2022-10-25 | [facility] | 4.3 | (missing) | (missing) | | (unavailable | 08:44:07 [facility] | | | | + + + +-------+ + + + + | Result panel 124 | + + + + + +-------+ + + | | 2022-10-25 | [facility] | 105 | (missing) | (missing) | | (unavailable | 08:44:07 [facility] | | | | + + + +-------+ + + + + | Result panel 125 | + + + + + +------+ + + | | 2022-10-25 | [facility] | 22 | (missing) | (missing) | | (unavailable | 08:44:07 [facility] | | | | + + + +------+ + + + + | Result panel 126 | + + + + + +--------+ + + | | 2022-10-25 | [facility] | 14.3 | (missing) | (missing) | | (unavailable | 08:44:07 [facility] | | | | + + + +--------+ + + + + | Result panel 127 | + + + + + +-------+---------+ + | | 2022-10-25 | [facility] | 8.9 | mg/dL | (missing) | | (unavailable | 08:44:07 [facility] | | | | + + + +-------+---------+ + + + | Result panel 128 | + + + + + +-------+ + + | | 2022-10-25 | [facility] | 7.5 | (missing) | (missing) | | (unavailable | 08:44:07 [facility] | | | | + + + +-------+ + + + + | Result panel 129 | + + + + + +-------+ + + | | 2022-10-25 | [facility] | 3.8 | (missing) | (missing) | | (unavailable | 08:44:07 | [facility] | | | [facility] | [facility] | | | | + + + +-------+ + + + + | Result panel 130 | + + + + + +--------+ + + | | 2022-10-25 | [facility] | 48.2 | (missing) | (missing) | | (unavailable | 08:44:07 [facility] | | | | + + + +--------+ + + + + | Result panel 131 | + + + + + +-------+ + + | | 2022-10-25 | [facility] | 3.7 | (missing) | (missing) | | (unavailable | [facility]:44:07 [facility] | | | | + + + +-------+ + + + + | Result panel 132 | + + + + + +--------+ + + | | 2022-10-25 | [facility] | 1.03 | (missing) | (missing) | | (unavailable | [facility]44:07 [facility] | | | | + + + +--------+ + + + + | Result panel 133 | + + + + + +-------+ + + | | 2022-10-25 | [facility] | 0.4 | (missing) | (missing) | | (unavailable | [facility]44:07 [facility] | | | | + + + +-------+ + + + + | Result panel 134 | + + + + + +------+ + + | | 2022-10-25 | [facility] | 17 | (missing) | (missing) | | (unavailable | [facility]44:07 [facility] | | | | + + + +------+ + + + + | Result panel 135 | + + + + + +------+ + + | | 2022-10-25 | [facility] | 22 | (missing) | (missing) | | (unavailable | [facility]44:07 [facility] | | | | + + + +------+ + + + + | Result panel 136 | + + + + + +------+ + + | | 2022-10-25 | [facility] | 61 | (missing) | (missing) | | (unavailable | [facility]44:07 [facility] | | | | + + + +------+ + + + + | Result panel 137 | + + + + + +------+ + + | | 2022-10-25 | [facility] | 61 | (missing) | (missing) | | (unavailable | [facility]:44:07 [facility] | | | | + + + +------+ + + + + | Result panel 138 | + + + + + + + + + | | 2022-10-25 | [facility] | NEGATIVE | (missing) | (missing) | | (unavailable | [facility]44:07 [facility] | | | | + + + + + + + + + | Result panel 139 | + + + + + +--------+ + + | | 2022-10-25 | [facility] | 84.9 | (missing) | (missing) | | (unavailable | [facility]44:07 [facility] | | | | + + + +--------+ + + + + | Result panel 140 | + + + + + +--------+ + + | | 2022-10-25 | [facility] | 28.2 | (missing) | (missing) | | (unavailable | [facility]44:07 [facility] | | | | + + + +--------+ + + + + | Result panel 141 | + + + + + +--------+ + + | | 2022-10-25 | [facility] | 33.2 | (missing) | (missing) | | (unavailable | [facility]44:07 [facility] | | | | + + + +--------+ + + + + | Result panel 142 | + + + + + +--------+ + + | | 2022-10-25 | [facility] | 13.7 | (missing) | (missing) | | (unavailable | [facility]44:07 [facility] | | | | + + + +--------+ + + + + | Result panel 143 | + + + + + +-------+ + + | | 2022-10-25 | [facility] | 276 | (missing) | (missing) | | (unavailable | [facility]44:07 [facility] | | | | + + + +-------+ + + + + | Result panel 144 | + + + + + + + + + | | 2022-10-25 | [facility] | YELLOW | (missing) | (missing) | | (unavailable | [facility]40:07 [facility] | | | | + + + + + + + + + | Result panel 145 | + + + + + +---------+ + + | | 2022-10-25 | [facility] | CLEAR | (missing) | (missing) | | (unavailable | [facility]40:07 [facility] | | | | + + + +---------+ + + + + | Result panel 146 | + + + + + + + + + | | 2022-10-25 | [facility] | NEGATIVE | (missing) | (missing) | | (unavailable | [facility]40:07 [facility] | | | | + + + + + + + + + | Result panel 147 | + + + + + + + + + | | 2022-10-25 | [facility] | NEGATIVE | (missing) | (missing) | | (unavailable | [facility]40:07 [facility] | | | | + + + + + + + + + | Result panel 148 | + + + + + + + + + | | 2022-10-25 | [facility] | NEGATIVE | (missing) | (missing) | | (unavailable | [facility]40:07 [facility] | | | | + + + + + + + + + | Result panel 149 | + + + + + + + + + | | 2022-10-25 | [facility] | >=1.030 | (missing) | (missing) | | (unavailable | [facility]40:07 [facility] | | | | + + + + + + + + + | Result panel 150 | + + + + + + + + + | | 2022-10-25 | [facility] | NEGATIVE | (missing) | (missing) | | (unavailable | [facility]40:07 [facility] | | | | + + + + + + + + + | Result panel 151 | + + + + + +-------+ + + | | 2022-10-25 | [facility] | 5.0 | (missing) | (missing) | | (unavailable | [facility]40:07 [facility] | | | | + + + +-------+ + + + + | Result panel 152 | + + + + + + + + + | | 2022-10-25 | [facility] | NEGATIVE | (missing) | (missing) | | (unavailable | [facility]40:07 [facility] | | | | + + + + + + + + + | Result panel 153 | + + + + + + + + + | | 2022-10-25 | [facility] | NORMAL | (missing) | (missing) | | (unavailable | [facility]40:07 [facility] | | | | + + + + + + + + + | Result panel 154 | + + + + + + + + + | | 2022-10-25 | [facility] | NEGATIVE | (missing) | (missing) | | (unavailable | [facility]40:07 [facility] | | | | + + + + + + + + + | Result panel 155 | + + + + + + + + + | | 2022-10-25 | [facility] | NEGATIVE | (missing) | (missing) | | (unavailable | [facility]40:07 [facility] | | | | + + + + + + + Social History No information. Vital Signs + + + +---------+ | date | measurement | value | units | + + + +---------+ | 2021-11-08 00:00 | BMI | 25.1 | kg/m2 | + + + +---------+ | 2021-11-08 00:00 | BP_diastolic | 61 | mmHg | + + + +---------+ | 2021-11-08 00:00 | BP_systolic | 118 | mmHg | + + + +---------+ | 2021-11-08 00:00 | heart_rate | 55 | /min | + + + +---------+ | 2021-11-08 00:00 | height_metric | 180.34 | cm | + + + +---------+ | 2021-11-08 00:00 | height_standard | 71 | in | + + + +---------+ | 2021-11-08 00:00 | o2_saturation | 99 | % | + + + +---------+ | 2021-11-08 00:00 | respiration_rate | 16 | /min | + + + +---------+ | 2021-11-08 00:00 | temperature_metric | 36.39 | C | | | | | | + + + +---------+ | 2021-11-08 00:00 | | 97.5 | F | | | temperature_standar | | | | | d | | | + + + +---------+ | 2021-11-08 00:00 | weight_metric | 81.65 | kg | + + + +---------+ | 2021-11-08 00:00 | weight_standard | 180 | lb | + + + +---------+ | 2021-11-08 00:00 | weight_standard | 180.01 | lb | + + + +---------+ | 2021-11-14 00:00 | BMI | 25.1 | kg/m2 | + + + +---------+ | 2021-11-14 00:00 | BP_diastolic | 77 | mmHg | + + + +---------+ | 2021-11-14 00:00 | BP_systolic | 133 | mmHg | + + + +---------+ | 2021-11-14 00:00 | heart_rate | 82 | /min | + + + +---------+ | 2021-11-14 00:00 | height_metric | 180.34 | cm | + + + +---------+ | 2021-11-14 00:00 | height_standard | 71 | in | + + + +---------+ | 2021-11-14 00:00 | o2_saturation | 99 | % | + + + +---------+ | 2021-11-14 00:00 | respiration_rate | 16 | /min | + + + +---------+ | 2021-11-14 00:00 | temperature_metric | 36.89 | C | | | | | | + + + +---------+ | 2021-11-14 00:00 | | 98.4 | F | | | temperature_standar | | | | | d | | | + + + +---------+ | 2021-11-14 00:00 | weight_metric | 81.65 | kg | + + + +---------+ | 2021-11-14 00:00 | weight_standard | 180 | lb | + + + +---------+ | 2021-11-14 00:00 | weight_standard | 180.01 | lb | + + + +---------+ | 2022-10-25 00:00 | BMI | 31.0 | kg/m2 | + + + +---------+ | 2022-10-25 00:00 | BP_diastolic | 70 | mmHg | + + + +---------+ | 2022-10-25 00:00 | BP_systolic | 115 | mmHg | + + + +---------+ | 2022-10-25 00:00 | heart_rate | 59 | /min | + + + +---------+ | 2022-10-25 00:00 | height_metric | 180.34 | cm | + + + +---------+ | 2022-10-25 00:00 | height_standard | 71 | in | + + + +---------+ | 2022-10-25 00:00 | o2_saturation | 99 | % | + + + +---------+ | 2022-10-25 00:00 | respiration_rate | 20 | /min | + + + +---------+ | 2022-10-25 00:00 | temperature_metric | 36.67 | C | | | | | | + + + +---------+ | 2022-10-25 00:00 | | 98 | F | | | temperature_standar | | | | | d | | | + + + +---------+ | 2022-10-25 00:00 | weight_metric | 100.7 | kg | + + + +---------+ | 2022-10-25 00:00 | weight_standard | 222.01 | lb | + + + +---------+"
--- OUTSIDE RECORDS SUMMARY | ~2023-01-24 | XMS | Continuity of Care Document ---
Demographics + + + | Address | [address] | | | [place] [address] | + + + | Preferred Language | Unknown | + + + | Marital Status | | + + + | Sabianism Affiliation | Unknown | + + + | Race | White | + + + | Ethnic Group | Not or | + + + Author + + + | Author | [facility] | + + + | Organization | [facility] | + + + | Address | [address] | | | [place] [address] | + + + | Phone | | + + + Care Team Providers + + + + | Care [employer] Reading Tutor Name | Role | Phone | + [...] + | 2022-10-25 00:00 | FAMOTIDINE | [facility] | + + + + | 2022-10-25 00:00 | ONDANSETRON | [facility] | + + + + | 2021-11-15 00:00 | PSEUDOEPHEDRINE HCL | [facility] | + + + + | 2021-11-17 00:00 | PSEUDOEPHEDRINE HCL | [facility] | + + + + | 2022-10-25 00:00 | PSEUDOEPHEDRINE HCL | [facility] | + + + + | 2021-11-15 00:00 | PSEUDOEPHEDRINE HCL | [facility] | + + + + | 2021-11-17 00:00 | PSEUDOEPHEDRINE HCL | [facility] | + + + + | 2022-10-25 00:00 | PSEUDOEPHEDRINE HCL | [facility] | + + + + | 2021-11-15 00:00 | OXYCODONE | [facility] | | | HCL/ACETAMINOPHEN | | + + + + | 2021-11-17 00:00 | OXYCODONE | [facility] | | | HCL/ACETAMINOPHEN | | + + + + | 2022-10-25 00:00 | OXYCODONE | [facility] | | | HCL/ACETAMINOPHEN | | + + + + | 2017-03-29 00:00 | PHENAZOPYRIDINE HCL | [facility] | + + + + | 2017-03-29 00:00 | PHENAZOPYRIDINE HCL | [facility] | + + + + | 2017-03-29 00:00 | PHENAZOPYRIDINE HCL | [facility] | + + + + | 2021-11-08 00:00 | DIPHENOXYLATE HCL/ATROPINE | [facility] | | | | | + + + + | 2021-11-08 00:00 | DIPHENOXYLATE HCL/ATROPINE | [facility] | | | | | + + + + | 2021-11-08 00:00 | DIPHENOXYLATE HCL/ATROPINE | [facility] | | | | | + + + + | 2018-03-26 00:00 | IPRATROPIUM/ALBUTEROL | [facility] | | | SULFATE | | + + + + | 2018-03-26 00:00 | IPRATROPIUM/ALBUTEROL | [facility] | | | SULFATE | | + + + + | 2018-03-26 00:00 | IPRATROPIUM/ALBUTEROL | [facility] | | | SULFATE | | + + + + | 2021-11-15 00:00 | Lipase/Protease/Amylase | [facility] | + + + + | 2021-11-17 00:00 | Lipase/Protease/Amylase | [facility] | + + + + | 2022-10-25 00:00 | Lipase/Protease/Amylase | [facility] | + + + + | 2021-11-15 00:00 | LIPASE/PROTEASE/AMYLASE | [facility] | + + + + | 2021-11-17 00:00 | LIPASE/PROTEASE/AMYLASE | [facility] | + + + + | 2022-10-25 00:00 | LIPASE/PROTEASE/AMYLASE | [facility] | + + + + | 2018-03-26 00:00 | DOXYCYCLINE HYCLATE | [facility] | + + + + | 2018-03-26 00:00 | DOXYCYCLINE HYCLATE | [facility] | + + + + | 2018-03-26 00:00 | DOXYCYCLINE HYCLATE | [facility] | + + + + | 2021-11-15 00:00 | NAPROXEN | [facility] | + + + + | 2021-11-17 00:00 | NAPROXEN | [facility] | + + + + | 2022-10-25 00:00 | NAPROXEN | [facility] | + + + + | 2018-03-26 00:00 | predniSONE | [facility] | + + + + | 2018-03-26 00:00 | predniSONE | [facility] | + + + + | 2018-03-26 00:00 | predniSONE | [facility] | + + + + | 2018-04-08 00:00 | LEVOFLOXACIN | [facility] | + + + + | 2018-04-08 00:00 | LEVOFLOXACIN | [facility] | + + + + | 2018-04-08 00:00 | LEVOFLOXACIN | [facility] | + + + + | 2021-11-15 00:00 | CEPHALEXIN | [facility] | + + + + | 2021-11-17 00:00 | CEPHALEXIN | [facility] | + + + + | 2022-10-25 00:00 | CEPHALEXIN | [facility] | + + + + | 2018-03-24 00:00 | AZITHROMYCIN | [facility] | + + + + | 2018-03-24 00:00 | AZITHROMYCIN | [facility] | + + + + | 2018-03-24 00:00 | AZITHROMYCIN | [facility] | + + + + | 2018-08-14 00:00 | CELECOXIB | [facility] | + + + + | 2018-08-14 00:00 | CELECOXIB | [facility] | + + + + | 2018-08-14 00:00 | CELECOXIB | [facility] | + + + + | 2021-11-15 00:00 | | [facility] | | | BUTALB/ACETAMINOPHEN/CAFFEI | | | | NE | | + + + + | 2021-11-17 00:00 | | [facility] | | | BUTALB/ACETAMINOPHEN/CAFFEI | | | | NE | | + + + + | 2022-10-25 00:00 | | [facility] | | | BUTALB/ACETAMINOPHEN/CAFFEI | | | | NE | | + + + + | 2021-11-15 00:00 | BENZONATATE | [facility] | + + + + | 2021-11-17 00:00 | BENZONATATE | [facility] | + + + + | 2022-10-25 00:00 | BENZONATATE | [facility] | + + + + | 2021-11-15 00:00 | SUMATRIPTAN SUCCINATE | [facility] | + + + + | 2021-11-17 00:00 | SUMATRIPTAN SUCCINATE | [facility] | + + + + | 2022-10-25 00:00 | SUMATRIPTAN SUCCINATE | [facility] | + + + + | 2021-11-15 00:00 | AMOXICILLIN | [facility] | + + + + | 2021-11-17 00:00 | AMOXICILLIN | [facility] | + + + + | 2022-10-25 00:00 | AMOXICILLIN | [facility] | + + + + | 2017-03-29 00:00 | CEPHALEXIN | [facility] | + + + + | 2017-03-29 00:00 | CEPHALEXIN | [facility] | + + + + | 2017-03-29 00:00 | CEPHALEXIN | [facility] | + + + + | 2018-08-14 00:00 | GABAPENTIN | [facility] | + + + + | 2018-08-14 00:00 | GABAPENTIN | [facility] | + + + + | 2018-08-14 00:00 | GABAPENTIN | [facility] | + + + + | 2021-11-15 00:00 | IBUPROFEN | [facility] | + + + + | 2021-11-17 00:00 | IBUPROFEN | [facility] | + + + + | 2022-10-25 00:00 | IBUPROFEN | [facility] | + + + + | 2018-03-24 00:00 | predniSONE | [facility] | + + + + | 2018-03-24 00:00 | predniSONE | [facility] | + + + + | 2018-03-24 00:00 | predniSONE | [facility] | + + + + | 2021-11-15 00:00 | SUMATRIPTAN SUCCINATE | [facility] | + + + + | 2021-11-17 00:00 | SUMATRIPTAN SUCCINATE | [facility] | + + + + | 2022-10-25 00:00 | SUMATRIPTAN SUCCINATE | [facility] | + + + + | 2018-03-26 00:00 | ALBUTEROL SULFATE | [facility] | + + + + | 2018-03-26 00:00 | ALBUTEROL SULFATE | [facility] | + + + + | 2018-03-26 00:00 | ALBUTEROL SULFATE | [facility] | + + + + | 2016-08-12 00:00 | ALBUTEROL SULFATE MDI | [facility] | | | (HFA) | | + + + + | 2016-08-12 00:00 | ALBUTEROL SULFATE MDI | [facility] | | | (HFA) | | + + + + | 2016-08-12 00:00 | ALBUTEROL SULFATE MDI | [facility] | | | (HFA) | | + + + + | 2018-04-08 00:00 | METHYLPREDNISOLONE | [facility] | + + + + | 2018-04-08 00:00 | METHYLPREDNISOLONE | [facility] | + + + + | 2018-04-08 00:00 | METHYLPREDNISOLONE | [facility] | + + + + | 2021-11-15 00:00 | METHYLPREDNISOLONE | [facility] | + + + + | 2021-11-17 00:00 | METHYLPREDNISOLONE | [facility] | + + + + | 2022-10-25 00:00 | METHYLPREDNISOLONE | [facility] | + + + + | 2021-11-15 00:00 | CYCLOBENZAPRINE HCL | [facility] | + + + + | 2021-11-17 00:00 | CYCLOBENZAPRINE HCL | [facility] | + + + + | 2022-10-25 00:00 | CYCLOBENZAPRINE HCL | [facility] | + + + + | 2021-11-08 00:00 | CYCLOBENZAPRINE HCL | [facility] | + + + + | 2021-11-08 00:00 | CYCLOBENZAPRINE HCL | [facility] | + + + + | 2021-11-08 00:00 | CYCLOBENZAPRINE HCL | [facility] | + + + + | 2021-11-15 00:00 | CHOLESTYRAMINE (WITH | [facility] | | | SUGAR) | | + + + + | 2021-11-17 00:00 | CHOLESTYRAMINE (WITH | [facility] | | | SUGAR) | | + + + + | 2022-10-25 00:00 | CHOLESTYRAMINE (WITH | [facility] | | | SUGAR) | | + + + + | 2021-11-15 00:00 | HYDROCODONE | [facility] | | | BIT/ACETAMINOPHEN | | + + + + | 2021-11-17 00:00 | HYDROCODONE | [facility] | | | BIT/ACETAMINOPHEN | | + + + + | 2022-10-25 00:00 | HYDROCODONE | [facility] | | | BIT/ACETAMINOPHEN | | + + + + | 2018-08-14 00:00 | HYDROCODONE | [facility] | | | BIT/ACETAMINOPHEN | | + + + + | 2018-08-14 00:00 | HYDROCODONE | [facility] | | | BIT/ACETAMINOPHEN | | + + + + | 2018-08-14 00:00 | HYDROCODONE | [facility] | | | BIT/ACETAMINOPHEN | | + + + + | 2021-11-15 00:00 | ALBUTEROL SULFATE | [facility] | + + + + | 2021-11-17 00:00 | ALBUTEROL SULFATE | [facility] | + + + + | 2022-10-25 00:00 | ALBUTEROL SULFATE | [facility] | + + + + | 2021-11-15 00:00 | FLUTICASONE/SALMETEROL | [facility] | + + + + | 2021-11-17 00:00 | FLUTICASONE/SALMETEROL | [facility] | + + + + | 2022-10-25 00:00 | FLUTICASONE/SALMETEROL | [facility] | + + + + | 2021-11-15 00:00 | BUDESONIDE | [facility] | + + + + | 2021-11-17 00:00 | BUDESONIDE | [facility] | + + + + | 2022-10-25 00:00 | BUDESONIDE | [facility] | + + + + | 2017-03-29 00:00 | DICYCLOMINE HCL | [facility] | + + + + | 2017-03-29 00:00 | DICYCLOMINE HCL | [facility] | + + + + | 2017-03-29 00:00 | DICYCLOMINE HCL | [facility] | + + + + | 2021-11-15 00:00 | PROMETHAZINE HCL | [facility] | + + + + | 2021-11-17 00:00 | PROMETHAZINE HCL | [facility] | + + + + | 2022-10-25 00:00 | PROMETHAZINE HCL | [facility] | + + + + | 2021-11-15 00:00 | PROMETHAZINE HCL | [facility] | + + + + | 2021-11-17 00:00 | PROMETHAZINE HCL | [facility] | + + + + | 2022-10-25 00:00 | PROMETHAZINE HCL | [facility] | + + + + | 2018-04-08 00:00 | Codeine | [facility] | | | Phosphate/Guaifenesin | | + + + + | 2018-04-08 00:00 | Codeine | [facility] | | | Phosphate/Guaifenesin | | + + + + | 2018-04-08 00:00 | Codeine | [facility] | | | Phosphate/Guaifenesin | | + + + + Problems + + + + | date | description | facility | + + + + | 2016-01-13 00:00 | Swelling of right hand | [facility] | + + + + | 2016-01-13 00:00 | Swelling of right hand | [facility] | + + + + | 2016-01-13 00:00 | Swelling of right hand | [facility] | + + + + | 2016-02-25 00:00 | Encounter for medical | [facility] | | | screening examination | | + + + + | 2016-02-25 00:00 | Encounter for medical | [facility] | | | screening examination | | + + + + | 2016-02-25 00:00 | Encounter for medical | [facility] | | | screening examination | | + + + + | 2016-03-07 00:00 | Dysfunctional uterine | [facility] | | | bleeding | | + + + + | 2016-03-07 00:00 | Dysfunctional uterine | [facility] | | | bleeding | | + + + + | 2016-03-07 00:00 | Dysfunctional uterine | [facility] | | | bleeding | | + + + + | 2016-03-08 00:00 | Dysfunctional uterine | [facility] | | | bleeding | | + + + + | 2016-03-08 00:00 | Dysfunctional uterine | [facility] | | | bleeding | | + + + + | 2016-03-08 00:00 | Dysfunctional uterine | [facility] | | | bleeding | | + + + + | 2016-08-12 00:00 | Adverse effect of drug | [facility] | + + + + | 2016-08-12 00:00 | Adverse effect of drug | [facility] | + + + + | 2016-08-12 00:00 | Adverse effect of drug | [facility] | + + + + | 2017-03-29 00:00 | Cystitis | [facility] | + + + + | 2017-03-29 00:00 | Cystitis | [facility] | + + + + | 2017-03-29 00:00 | Cystitis | [facility] | + + + + | 2017-03-29 00:00 | Bladder spasm | [facility] | + + + + | 2017-03-29 00:00 | Bladder spasm | [facility] | + + + + | 2017-03-29 00:00 | Bladder spasm | [facility] | + + + + | 2018-03-24 00:00 | Atypical pneumonia | [facility] | + + + + | 2018-03-24 00:00 | Atypical pneumonia | [facility] | + + + + | 2018-03-24 00:00 | Atypical pneumonia | [facility] | + + + + | 2018-03-24 00:00 | Asthma | [facility] | + + + + | 2018-03-24 00:00 | Asthma | [facility] | + + + + | 2018-03-24 00:00 | Asthma | [facility] | + + + + | 2018-03-26 00:00 | Acute bronchitis with | [facility] | | | bronchospasm | | + + + + | 2018-03-26 00:00 | Acute bronchitis with | [facility] | | | bronchospasm | | + + + + | 2018-03-26 00:00 | Acute bronchitis with | [facility] | | | bronchospasm | | + + + + | 2018-04-08 00:00 | Upper respiratory tract | [facility] | | | infection | | + + + + | 2018-04-08 00:00 | Upper respiratory tract | [facility] | | | infection | | + + + + | 2018-04-08 00:00 | Upper respiratory tract | [facility] | | | infection | | + + + + | 2018-04-08 00:00 | Acute exacerbation of | [facility] | | | chronic obstructive | | | | pulmonary disease | | + + + + | 2018-04-08 00:00 | Acute exacerbation of | [facility] | | | chronic obstructive | | | | pulmonary disease | | + + + + | 2018-04-08 00:00 | Acute exacerbation of | [facility] | | | chronic obstructive | | | | pulmonary disease | | + + + + | 2018-11-27 00:00 | Vomiting and diarrhea | [facility] | + + + + | 2018-11-27 00:00 | Vomiting and diarrhea | [facility] | + + + + | 2018-11-27 00:00 | Vomiting and diarrhea | [facility] | + + + + | 2018-11-27 00:00 | Dizziness | [facility] | + + + + | 2018-11-27 00:00 | Dizziness | [facility] | + + + + | 2018-11-27 00:00 | Dizziness | [facility] | + + + + | 2018-11-27 00:00 | Unintended weight loss | [facility] | + + + + | 2018-11-27 00:00 | Unintended weight loss | [facility] | + + + + | 2018-11-27 00:00 | Unintended weight loss | [facility] | + + + + | 2019-01-10 00:00 | Patient left without being | [facility] | | | seen | | + + + + | 2019-01-10 00:00 | Patient left without being | [facility] | | | seen | | + + + + | 2019-01-10 00:00 | Patient left without being | [facility] | | | seen | | + + + + | 2019-01-25 00:00 | Flank pain | [facility] | + + + + | 2019-01-25 00:00 | Flank pain | [facility] | + + + + | 2019-01-25 00:00 | Flank pain | [facility] | + + + + | 2019-06-01 00:00 | Otitis externa of left ear | [facility] | | | | | + + + + | 2019-06-01 00:00 | Otitis externa of left ear | [facility] | | | | | + + + + | 2019-06-01 00:00 | Otitis externa of left ear | [facility] | | | | | + + + + | 2019-06-01 00:00 | Left otitis media | [facility] | + + + + | 2019-06-01 00:00 | Left otitis media | [facility] | + + + + | 2019-06-01 00:00 | Left otitis media | [facility] | + + + + | 2020-05-28 00:00 | Enteritis | [facility] | + + + + | 2020-05-28 00:00 | Enteritis | [facility] | + + + + | 2020-05-28 00:00 | Enteritis | [facility] | + + + + | 2021-02-03 00:00 | Sciatica of left side | [facility] | + + + + | 2021-02-03 00:00 | Sciatica of left side | [facility] | + + + + | 2021-02-03 00:00 | Sciatica of left side | [facility] | + + + + | 2022-06-21 [...] + | 2022-10-25 00:00 | Gastritis | [facility] | + + + + | 2022-10-25 [...] + + | 2022-10-25 08:07 | OTHER [facility] (CURRENT) | [facility] | | | DRUG [...] (missing) | | (unavailable | 09:40:07 | [facility] | | | | | ) | [...]
[~2023-01-24 06:08] MED LIST changes: +BENZONATATE200 MG PO; +CYCLOBENZAPRINE10 MG PO; +LOMOTIL TABLET1 EACH PO; +ONDANSETRON ODT4 MG PO; +PEPCID20 MG PO; +PROMETHAZINE HC25 M1 PO; +ZENPEP DR 20,01 EACH PO
--- OUTSIDE RECORDS SUMMARY | 2023-01-24 06:11 | XMS ---
PreManage Notification: SERGIO REIS Security Family Counselor Events No recent Security Events currently on file CRITERIA MET - PDMP CARE PROVIDERS ROXANNA WISEMAN Physician Biazzi Nitrator Operator 05/31/2020-Current PHONE: Unknown -Beckie- Dentist: Hiv Prevention Specialist [facility] PHONE: [phone] Leisa has no Care Guidelines for this patient. Care History Medical/Surgical 12/02/2018 [facility] - PATIENT HAS AN APT WITH DR MILTON- UROLOGIST- MOVED FROM 12/12/18 TO AT 9:00AM. 04/10/2018 [facility] - PATIENT PCP HAS DISCUSSED WITH PATIENT ABOUT A REFERRAL TO PULMONARY REHAB THE WEEK OF 04/08/18 - PATIENT AND PCP AGREED TO PULMONARY REHAB. PATIENT FOLLOWED UP WITH PCP ON 04/09/18 DUE TO RECENT ED VISITS. E.D. VISIT COUNT (12 MO.) 2 [facility] TOTAL 2 NOTE: Visits indicate total known visits. ED/UCC VISIT TRACKING (12 MO.) 01/24/2023 06:09 [facility] TYPE: Emergency COMPLAINT: - R HIP/TOES PAIN 10/25/2022 08:07 [facility] TYPE: Emergency COMPLAINT: - ABD/BACK PAIN, VOMITING, DIARRHEA DIAGNOSES: - Allergy status to narcotic agent - Allergy status to other drugs, medicaments and biological substances - Allergy status to penicillin - Chronic obstructive pulmonary disease, unspecified - Gastritis, unspecified, without bleeding - Nicotine dependence, unspecified, uncomplicated - Other buttermaker (current) drug therapy - Unspecified abdominal pain INPATIENT VISIT TRACKING (12 MO.) No inpatient visits to display in this time frame [email or web address]
[2023-01-24 07:03] VITALS: BP 126/93
== END 2023-01-24 06:39 | disposition home or self-care (01) ==
LOC: ED 06:08
DX: G89.18 Other acute postprocedural pain (principal); M79.604 Pain in right leg; G43.909 Migraine, unspecified, not intractable, without status migrainosus; G40.909 Epilepsy, unspecified, not intractable, without status epilepticus; J44.9 Chronic obstructive pulmonary disease, unspecified; F17.200 Nicotine dependence, unspecified, uncomplicated; Z88.8 Allergy status to other drugs, medicaments and biological substances; Z88.0 Allergy status to penicillin; Z88.5 Allergy status to narcotic agent; Z79.899 Other long term (current) drug therapy
CPT/HCPCS: 99283

== ENCOUNTER 2023-02-22 01:47 | Emergency (ER) | payer MEDICARE, OTHER ==
[~2023-02-22] VITALS: Ht 180.3 cm; Wt 105.0 kg
--- OUTSIDE RECORDS SUMMARY | 2023-02-22 01:51 | XMS ---
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 Care History Medical/Surgical 12/02/2018 [facility] - PATIENT HAS AN APT WITH DR MILTON- UROLOGIST- MOVED FROM 12/12/18 TO AT 9:00AM. 04/10/2018 [facility] - PATIENT PCP HAS DISCUSSED WITH PATIENT ABOUT A REFERRAL TO PULMONARY REHAB THE WEEK OF 04/08/18 - PATIENT AND PCP AGREED TO PULMONARY REHAB. PATIENT FOLLOWED UP WITH PCP ON 04/09/18 DUE TO RECENT ED VISITS. E.D. VISIT COUNT (12 MO.) 3 TRAY Hernandez [employer] TOTAL 4 NOTE: Visits indicate total known visits. ED/UCC VISIT TRACKING (12 MO.) 02/22/2023 01:48 [facility] [place] TYPE: Emergency COMPLAINT: - CHEST PAIN 01/24/2023 07:34 [employer] [facility] [place] TYPE: Emergency COMPLAINT: - RIGHT KNEE PAIN POST OP SURGERY ON DIAGNOSES: - RIGHT KNEE PAIN POST OP SURGERY ON 01/24/2023 06:09 [facility] Zhang [place] TYPE: Emergency COMPLAINT: - R HIP/TOES PAIN DIAGNOSES: - Allergy status to narcotic agent - Allergy status to other drugs, medicaments and biological substances - Allergy status to penicillin - Chronic obstructive pulmonary disease, unspecified - Epilepsy, unspecified, not intractable, without status epilepticus - Migraine, unspecified, not intractable, without status migrainosus - Nicotine dependence, unspecified, uncomplicated - Other acute postprocedural pain - Other prison (current) drug therapy - Pain in right leg 10/25/2022 08:07 T[facility] Zhang [place] TYPE: Emergency COMPLAINT: - ABD/BACK PAIN, VOMITING, DIARRHEA DIAGNOSES: - Allergy status to narcotic agent - Allergy status to other drugs, medicaments and biological substances - Allergy status to penicillin - Chronic obstructive pulmonary disease, unspecified - Gastritis, unspecified, without bleeding - Nicotine dependence, unspecified, uncomplicated - Other long term care administrator (current) drug therapy - Unspecified abdominal pain INPATIENT VISIT TRACKING (12 MO.) No inpatient visits to display in this time frame [email or web address]
[2023-02-22 02:07] LABS: BASOPHILS 0.4 % (0-2); EOSINOPHILS 0.2 % (0-6); HEMATOCRIT 42.1 % (35.0-50.0); HEMOGLOBIN 13.4 g/dL (12.0-18.0); LYMPHOCYTES 22.3 % (24-44); MCH 27.1 (27-36); MCV 84.8 fl (81-99); MONOCYTES 3.9 % (0-12); NEUTROPHILS 73.2 % (39-80); PLATELET COUNT 375 K/uL (140-440); RBC 4.96 M/ul (4.3-5.7)
[2023-02-22] MEDS ORDERED: GABAPENTIN300 MG PO (02:11)
[2023-02-22] MEDS ORDERED: SUCRALFATE1 GM/10 ML PO (02:12)
[2023-02-22] MEDS ORDERED: VENTOLIN HFA18 GM INH (02:12)
[2023-02-22 02:27] LABS: INR 0.92 (0.80-1.30)
[2023-02-22 02:31] LABS: ALBUMIN 4.4 g/dL (3.4-5.0); ALBUMIN/GLOBULIN RATIO 1.22 (1.1-2.4); ANION GAP 13.3 (7-21); BILIRUBIN, TOTAL 0.3 ng/dL (0.2-1.0); BUN/CREATININE RATIO 21.68 (6.0-28.6); CALCIUM 9.6 mg/dL (8.5-10.1); CREATININE, SERUM 0.83 mg/dL (0.55-1.02); MAGNESIUM 1.9 mg/dL (1.8-2.4); POTASSIUM 3.3 mmol/L (3.5-5.1)
[2023-02-22] MEDS ORDERED: METOPROLOL SUCC25 MG PO (04:02)
[2023-02-22 04:38] VITALS: BP 114/82
--- NOTE | 2023-02-22 21:06 | EKG ---
[facility] [address] [facility] [place], [place] [address] Signed Poor data quality, interpretation may be adversely affected Supraventricular tachycardia Rightward axis ST \T\ T wave abnormality, consider inferior ischemia ST \T\ T wave abnormality, consider anterior ischemia Abnormal ECG Confirmed by Silvia Qiu MD () on 02/22/2023 9:06:25 PM Electronically Signed By: SILVIA QIU MD 02/22/236 PATIENT NAME: FREDDY SOLISSERGIO KIMBLE Electrocardiogram DATE OF : 71 PHYSICIAN: SILVIA QIU MD REPORT #: [id number] REPORT IS CONFIDENTIAL AND NOT TO BE RELEASED WITHOUT AUTHORIZATION
--- NOTE | 2023-02-22 21:07 | EKG ---
[facility] [address] [facility] [place] [address] Signed Atrial fibrillation with rapid ventricular response Nonspecific ST and T wave abnormality Abnormal ECG When compared with ECG of 22-FEB-2023 01:47, Atrial fibrillation has replaced Sinus rhythm ST no longer depressed in Inferior leads ST no longer depressed in Lateral leads T wave inversion less evident in Inferior leads Confirmed by Silvia Baca MD () on 02/22/2023 9:07:12 PM Electronically Signed By: SILVIA BACA MD 02/22/232106 PATIENT NAME: SERGIO REIS Electrocardiogram DATE OF : 71 PHYSICIAN: SILVIA BACA MD REPORT #: [id number] REPORT IS CONFIDENTIAL AND NOT TO BE RELEASED WITHOUT AUTHORIZATION
== END 2023-02-22 04:42 | disposition home or self-care (01) ==
LOC: ED 01:47
PROVIDERS: Family Medicine
DX: I48.0 Paroxysmal atrial fibrillation (principal); J44.9 Chronic obstructive pulmonary disease, unspecified; F17.200 Nicotine dependence, unspecified, uncomplicated; Z96.651 Presence of right artificial knee joint; Z88.8 Allergy status to other drugs, medicaments and biological substances; Z88.0 Allergy status to penicillin; Z88.5 Allergy status to narcotic agent
CPT/HCPCS: 36415; 71260; 80053; 83735; 83880; 84484; 85025; 85379; 85610; 93005; 93010; 99285-25; J7121

== ENCOUNTER 2023-03-03 13:59 | Emergency (ER) | payer MEDICARE, OTHER ==
[~2023-03-03] VITALS: Ht 180.3 cm; Wt 108.0 kg
[~2023-03-03 13:59] MED LIST changes: +METOPROLOL SUCC25 MG PO; +SUCRALFATE1 GM/10 ML PO
--- OUTSIDE RECORDS SUMMARY | 2023-03-03 14:02 | XMS ---
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 Care History Medical/Surgical 12/02/2018 [facility] - PATIENT HAS AN APT WITH DR MILTON- UROLOGIST- MOVED FROM 12/12/18 TO AT 9:00AM. 04/10/2018 [facility] - PATIENT PCP HAS DISCUSSED WITH PATIENT ABOUT A REFERRAL TO PULMONARY REHAB THE WEEK OF 04/08/18 - PATIENT AND PCP AGREED TO PULMONARY REHAB. PATIENT FOLLOWED UP WITH PCP ON 04/09/18 DUE TO RECENT ED VISITS. E.D. VISIT COUNT (12 MO.) 4 [facility] NOTE: Visits indicate total known visits. ED/UCC VISIT TRACKING (12 MO.) 03/03/2023 14:00 [facility] Zhang [place] TYPE: Emergency COMPLAINT: - R LEG PAIN 02/22/2023 01:48 [facility] Zhang [place] TYPE: Emergency COMPLAINT: - CHEST PAIN DIAGNOSES: - Allergy status to narcotic agent - Allergy status to other drugs, medicaments and biological substances - Allergy status to penicillin - Chronic obstructive pulmonary disease, unspecified - Nicotine dependence, unspecified, uncomplicated - Paroxysmal atrial fibrillation - Presence of right artificial knee joint - Tachycardia, unspecified 01/24/2023 07:34 [facility] [place] TYPE: Emergency COMPLAINT: - RIGHT KNEE [...] - Nicotine dependence, unspecified, uncomplicated - Other medical terminologist (current) drug therapy - Unspecified abdominal pain INPATIENT VISIT TRACKING (12 MO.) No inpatient visits to display in this time frame [email or web address]
[2023-03-03] MEDS ORDERED: LEVOTHYROXINE75 MCG PO (14:55)
[2023-03-03] MEDS ORDERED: PREDNISONE20 MG PO (14:55)
[2023-03-03] MEDS ORDERED: SERTRALINE HCL25 MG PO (14:55)
[2023-03-03 15:26] VITALS: BP 153/78
== END 2023-03-03 15:27 | disposition home or self-care (01) ==
LOC: ED 13:59
DX: M54.16 Radiculopathy, lumbar region (principal); G43.909 Migraine, unspecified, not intractable, without status migrainosus; G40.909 Epilepsy, unspecified, not intractable, without status epilepticus; J44.9 Chronic obstructive pulmonary disease, unspecified; F17.200 Nicotine dependence, unspecified, uncomplicated; Z88.8 Allergy status to other drugs, medicaments and biological substances; Z88.0 Allergy status to penicillin; Z88.5 Allergy status to narcotic agent; Z79.899 Other long term (current) drug therapy; Z79.52 Long term (current) use of systemic steroids
CPT/HCPCS: 99283

== ENCOUNTER 2024-06-09 13:31 | Emergency (ER) | payer MEDICARE, MEDICAID ==
[~2024-06-09] VITALS: Ht 180.3 cm; Wt 98.9 kg
[~2024-06-09 13:31] MED LIST changes: +FUROSEMIDE20 MG PO; +JARDIANCE10 MG PO; +K-TAB ER20 MEQ PO; +LASIX40 MG PO; +LEVOTHYROXINE75 MCG PO; +METOLAZONE5 MG PO; +NEURONTIN300 MG PO; +PERCOCET 5-3251 EACH; +PROPRANOLOL HCL10 MG PO; +SERTRALINE HCL25 MG PO
[2024-06-09] MEDS ORDERED: CREON DR 24,001 EACH (13:48)
[2024-06-09] MEDS ORDERED: PROGESTERONE100 MG (13:49)
[2024-06-09] MEDS ORDERED: DOTTI1 EACH (13:49)
[2024-06-09] MEDS ORDERED: BUPROPION XL150 MG (13:49)
[2024-06-09] MEDS ORDERED: FARXIGA10 MG (13:49)
[2024-06-09] MEDS ORDERED: SUMATRIPTAN SUC50 MG (13:50)
[2024-06-09] MEDS ORDERED: PROMETHAZINE HC25 M1 (13:50)
[2024-06-09] MEDS ORDERED: ATORVASTATIN CA40 MG (13:50)
[2024-06-09] MEDS ORDERED: FLUTICASONE PRO16 GM (13:50)
[2024-06-09 13:57] LABS: BASOPHILS 0.2 % (0-2); EOSINOPHILS 2.2 % (0-6); HEMATOCRIT 48.4 % (35.0-50.0); HEMOGLOBIN 16.1 g/dL (12.0-18.0); LYMPHOCYTES 26.7 % (24-44); MCH 27.1 (27-36); MCHC 33.2 g/dl (30-36); MCV 81.6 fl (81-99); MONOCYTES 8.5 % (0-12); NEUTROPHILS 62.4 % (39-80); PLATELET COUNT 380 K/uL (140-440); RBC 5.93 M/ul (4.3-5.7); RDW 14.4 (10.5-15.0)
[2024-06-09 14:22] LABS: ALBUMIN 4.1 g/dL (3.4-5.0); ANION GAP 12.4 (7-21); BILIRUBIN, TOTAL 0.3 ng/dL (0.2-1.0); BUN/CREATININE RATIO 12.08 (6.0-28.6); CALCIUM 9.4 mg/dL (8.5-10.1); CREATININE, SERUM 0.91 mg/dL (0.55-1.02); MAGNESIUM 1.9 mg/dL (1.8-2.4); POTASSIUM 3.4 mmol/L (3.5-5.1); PROTEIN, TOTAL 8.2 g/dL (6.4-8.2)
[2024-06-09] MEDS ORDERED: ONDANSETRON ODT8 MG PO (15:22)
[2024-06-09 15:34] VITALS: BP 124/84
--- NOTE | 2024-06-10 15:06 | EKG ---
[facility] [address] [facility] [place] [address] Signed Normal sinus rhythm Rightward axis Borderline ECG When compared with ECG of 17-JUL-2023 15:38, fusion complexes are no longer present Confirmed by Lupe Guerra MD ([id number]) on 06/10/2024 3:06:27 PM Electronically Signed By: LUPE GUERRA MD 06/10/24 1506 PATIENT NAME: SERGIO REIS Electrocardiogram DATE OF : 71 PHYSICIAN: LUPE GUERRA MD REPORT #: [id number] REPORT IS CONFIDENTIAL AND NOT TO BE RELEASED WITHOUT AUTHORIZATION
== END 2024-06-09 15:34 | disposition home or self-care (01) ==
LOC: ED 13:31
PROVIDERS: Emergency Medicine
DX: R04.2 Hemoptysis (principal); R07.9 Chest pain, unspecified; R11.2 Nausea with vomiting, unspecified; J44.89 Other specified chronic obstructive pulmonary disease; G43.909 Migraine, unspecified, not intractable, without status migrainosus; G40.909 Epilepsy, unspecified, not intractable, without status epilepticus; F17.290 Nicotine dependence, other tobacco product, uncomplicated; Z88.6 Allergy status to analgesic agent; Z88.0 Allergy status to penicillin; Z88.5 Allergy status to narcotic agent; Z88.8 Allergy status to other drugs, medicaments and biological substances; Z79.890 Hormone replacement therapy; Z79.899 Other long term (current) drug therapy
CPT/HCPCS: 36415; 71045; 71260; 80053; 83735; 83880; 84484; 85025; 85060; 93005; 93010; 99285-25; Q9967